=== PATIENT | female | born 1930 | race Caucasian/White ===

== ENCOUNTER 2016-09-23 11:58 | Inpatient (IN) | payer OTHER ==
[~2016-09-23] VITALS: Ht 154.9 cm; Wt 39.0 kg
[~2016-09-23 11:58] MED LIST: ACET-1311 PO; ALBU1AER9 INH; CALC-335 PO; LEVO75TA5 PO; MAGNSUS5 PO; NITR0.4S UT; POLY335019 PO; POTA20TA13 PO; RSTOPS OP; SENN8.6T15 PO; SERT25TA PO
[2016-09-23] MEDS ORDERED: GUAI1TAB55 PO (12:45)
[2016-09-23] MEDS ORDERED: MOMLX PO (12:45)
[2016-09-23] MEDS ORDERED: ONDA4TAB46 PO (12:45)
[2016-09-23] MEDS ORDERED: IMD/2 PO (12:45)
[2016-09-23] MEDS ORDERED: OXGN (12:45)
[2016-09-23] MEDS ORDERED: CLC100 PO (12:45)
[2016-09-23] MEDS ORDERED: SERT50TA PO (12:45)
[2016-09-23] MEDS ORDERED: CYCL0.052 OP (12:45)
--- NOTE | 2016-09-23 12:53 | EMERGENCY ROOM VISIT NOTE ---
History Report prepared by Lalaibbobby: Otoniel Villegas Under the Supervision of: Dr. Ruth Garcia M.D. First contact with patient: 12:41 Chief Complaint: COUGH Stated Complaint: SHORTNESS OF BREATH Nursing Triage Summary: Pt was brought in via ambulance ALS from [facility]. Pt has had a productive cough for the last 3-4 days. Pt is on 2lpm of home O2 only at night. When EMS arrived the pt O2 sat was in the mid 80's. Pt was placed on 2lpm and given a dueoneb en route. EMS reported rhonchi bilaterally. Pt is afebrille and has no other complaints. History of Present Illness The patient is an 85 year old female who presents to the Emergency Room via ALS from [facility] with complaints of persistent cough for the past few days. The patient complains of phlegm and a productive cough. She notes that every once in awhile her forehead feels warm, but then it goes away. Upon arrival at the ED, the patient is afebrile. The patient wears oxygen at night. Upon EMS arrival, the patient's oxygen saturation was in the mid 80's. The patient was placed on 2 liters and given a Duoneb treatment en route to the ED. Source of History: patient, nursing staff Onset: past few days Position: other (global) Timing: other (persistent) Associated Symptoms: + fevers (subjective) Note: Other associated symptoms: productive cough, phlegm Review of Systems See HPI for pertinent positives & negatives. A total of 10 systems reviewed and were otherwise negative. Past Medical & Surgical Medical Problems: (1) Anxiety State Nos (2) C7 cervical fracture (3) Chronic obstructive lung disease (4) Chronic respiratory failure (5) Diverticulosis Colon (W/O Ment Of Hemorrhage) (6) Frequent falls (7) FX UPPER END TIBIA-CLOSE (8) H/o lacunar infarct (9) History of possible drop attacks (10) History of systemic lupus erythematosus (SLE) (11) History of vertigo (12) Hypertension Nos (13) Hypothyroidism Nos (14) Lumbar spinal stenosis (15) Macular degeneration (16) Osteoarthritis (17) Osteoporosis Nos (18) Psoriasis (19) Pulmonary hypertension (20) Vertigo Surgical Problems: (1) History of dental surgery (2) S/P cataract surgery Family History Diabetes mellitus Gallbladder disease Heart disease Social History Smoking Status: Former Smoker Alcohol Use: none Drug Use: none Marital Status: single Housing Status: lives alone Occupation Status: retired Current/Historical Medications Scheduled Calcium Citrate-Vitamin D (Citracal Petites/Vitamin), 1 TAB PO DAILY Cyclosporine (Ophth) (Restasis), 1 DROP OP BID Docusate Sodium (Docusate Sodium), 100 MG PO BID Levothyroxine Sodium (Levothyroxine Sodium), 75 MCG PO DAILY Loperamide Hcl (Imodium), 4 MG PO UD Multiple Vitamins W/ Minerals (Ocuvite), 1 TABLET PO DAILY Nitroglycerin (Nitrostat), 0.4 MG UT PRN Oxygen (Oxygen), 2 LITERS NA PRN Polyethylene Glycol 3350 (Miralax), 1 TBS PO DAILY Potassium Chloride Microencaps (Potassium Chloride Er), 20 MEQ PO DAILY Sertraline (Zoloft), 50 MG PO DAILY Scheduled PRN Acetaminophen (Tylenol), 650 MG PO Q6 PRN for Pain Guaifenesin Ext Rel (Mucinex Ext Rel), 600 MG PO BID PRN for CONGESTION Magnesium Hydroxide (Milk of Magnesia), 30 ML PO DAILY PRN for Constipation Ondansetron Hcl (Zofran), 4 MG PO Q6 PRN for Nausea Sennosides-Docusate Sodium (Sennalax-S), 1 TAB PO DAILY PRN for Constipation Allergies Coded Allergies: Macrolides and Ketolides (Unverified Allergy, Mild, "mycins" = rash, ) Physical Exam Vital Signs Date Time Temp Pulse Resp B/P Pulse Ox O2 Delivery O2 Flow Rate FiO2 09/23/16 14:04 116/70 92 09/23/16 12:16 93 Nasal Cannula 3.0 09/23/16 12:09 89 Room Air 09/23/16 12:09 36.8 100 22 120/70 88 Room Air Physical Exam Vital signs reviewed. General: Chronically ill-appearing female, cachectic and frail, in no significant distress. HEENT: No scleral icterus, PERRLA, neck supple. Atraumatic. Cardiovascular: Regular rate and rhythm, no extra sounds. Pulmonary: Nasal canula oxygen in place. Coarse breath sounds bilaterally in all lung velázquez. Abdomen: Soft, nontender, nondistended, positive bowel sounds. Musculoskeletal: Atraumatic, no peripheral edema. Neurologic: Patient awake alert and oriented x 3, full strength in all 4 extremities. Cranial nerves 2 through 12 grossly intact. Skin: Warm, dry, no rash Medical Decision & Procedures ER Provider Diagnostic Interpretation: X-ray results as stated below per interpretation by me and the radiologist: CHEST ONE VIEW PORTABLE CLINICAL HISTORY: cough, SOB, COPD dyspnea COMPARISON STUDY: 02/18/2016 FINDINGS: Consolidative infiltrative process of the central right lung with probable right hilar extension. Baseline emphysematous change and chronic fibrotic change throughout both hemithoraces. Several scattered calcified granulomas stable. IMPRESSION: Interval development of a relatively large right perihilar consolidative infiltrative process. This should be closely monitored to exclude complete resolution and exclude any possible underlying mass . Electronically signed by: Arron Ty M.D. 09/23/2016 1:19 PM Dictated Date/Time: 09/23/2016 1:18 PM Laboratory Results Test 09/23/16 00:00 09/23/16 13:05 09/23/16 13:14 Influenza Type A (RT-PCR) Neg for Influ A (NEG) Influenza Type B (RT-PCR) Neg for Influ B (NEG) Immature Granulocyte % (Auto) 0.7 % White Blood Count 18.39 K/uL (4.8-10.8) Red Blood Count 3.39 M/uL (4.2-5.4) Hemoglobin 10.3 g/dL (12.0-16.0) Hematocrit 30.7 % (37-47) Mean Corpuscular Volume 90.6 fL (80-100) Mean Corpuscular Hemoglobin 30.4 pg (25-34) Mean Corpuscular Hemoglobin Concent 33.6 g/dl (32-36) Platelet Count 550 K/uL (130-400) Mean Platelet Volume 8.4 fL (7.4-10.4) Neutrophils (%) (Auto) 83.5 % Lymphocytes (%) (Auto) 7.3 % Monocytes (%) (Auto) 8.3 % Eosinophils (%) (Auto) 0.1 % Basophils (%) (Auto) 0.1 % Neutrophils # (Auto) 15.38 K/uL (1.4-6.5) Lymphocytes # (Auto) 1.34 K/uL (1.2-3.4) Monocytes # (Auto) 1.53 K/uL (0.11-0.59) Eosinophils # (Auto) 0.01 K/uL (0-0.5) Basophils # (Auto) 0.01 K/uL (0-0.2) Immature Granulocyte # (Auto) 0.12 K/uL (0.00-0.02) Prothrombin Time 12.1 SECONDS (9.0-12.0) Prothromb Time International Ratio 1.1 (0.9-1.1) Magnesium Level 2.2 mg/dl (1.8-2.4) Total Bilirubin 0.2 mg/dl (0.2-1) Direct Bilirubin < 0.1 mg/dl (0-0.2) Aspartate Amino Transf (AST/SGOT) 42 U/L (15-37) Alanine Aminotransferase (ALT/SGPT) 28 U/L (12-78) Alkaline Phosphatase 126 U/L (45-117) Total Creatine Kinase 17 U/L (26-192) Creatine Kinase MB 0.8 ng/ml (0.5-3.6) Creatine Kinase MB Ratio 4.7 (0-3.0) Total Protein 8.0 gm/dl (6.4-8.2) Albumin 1.7 gm/dl (3.4-5.0) Bedside Troponin I 0.020 ng/ml (0-0.045) Laboratory results per my review. Medications Administered Medications (Trade) Dose Ordered Sig/Veronica Route Start Time Stop Time Status Last Admin Dose Admin Levofloxacin 750 mg 750 mg NOW STAT IV 09/23/16 14:05 09/23/16 14:07 DC 09/23/16 15:42 750 MG Sodium Chloride (Nss 1000ml) 1,000 ml @ 100 mls/hr Q10H IV 09/23/16 15:11 09/26/16 04:23 100 MLS/HR Acetaminophen (Tylenol Tab) 650 mg Q4H PRN PO 09/23/16 15:15 10/23/16 15:14 09/23/16 22:24 650 MG ECG Indication: other Rate (beats per minute): 100 Rhythm: normal sinus Findings: PAC, no acute ischemic change, other (QTc 441) ED Course 1245: Past medical records reviewed. The patient was evaluated in room B9. A complete history and physical examination was performed. 1405: Ordered Levofloxacin 750 mg IV. 1415: Ordered Ioversol 100 ml IV/ Interaction checking. 1428: At this time, I discussed the patient's case with Dr. Tunde Ventura and she agreed to accept the patient for further evaluation. Medical Decision Differential diagnosis: Etiologies such as infections, reactive airway disease, pneumonia, pneumothorax , COPD, CHF, cardiac ischemia, pulmonary embolism, musculoskeletal, gastrointestinal, as well as others were entertained. This pt was evaluated and appeared to be in no distress. IV access was obtained and lab work was drawn. Pt was hydrated with NSS. CXR reveals a large R infiltrate. Lab work reveals an elevated WBC. Blood cultures and lactate were ordered. Influenza swab is negative. A CT chest was ordered to evaluate for underlying mass. Pt was given IV levaquin in the ED. Pt was d/w the hospitalist service for further management. Pt and niece are aware of the plan and agree. Consults Time Called: 142 Consulting Physician: Dr. Griffiths - Margo Ventura Returned Call: [phone] At this time, I discussed the patient's case with Dr. Griffiths and she agreed to accept the patient for further evaluation. Impression Primary Impression: Pneumonia Scribe Attestation The scribe's documentation has been prepared under my direction and personally reviewed by me in its entirety. I confirm that the note above accurately reflects all work, treatment, procedures, and medical decision making performed by me. Departure Information Dispostion Being Evaluated By Hospitalist Referrals Les Norton M.D. (PCP) Problem Qualifiers Primary Impression: Pneumonia Pneumonia type: due to unspecified organism Laterality: right Lung location : unspecified part of lung Qualified Codes: J18.9 - Pneumonia, unspecified organism
[2016-09-23] MEDS ORDERED: MULT-188 PO (13:10)
--- NOTE | 2016-09-23 13:21 | DIAGNOSTIC IMAGING REPORT ---
CHEST ONE VIEW PORTABLE CLINICAL HISTORY: cough, SOB, COPD dyspnea COMPARISON STUDY: 02/18/2016 FINDINGS: Consolidative infiltrative process of the central right lung with probable right hilar extension. Baseline emphysematous change and chronic fibrotic change throughout both hemithoraces. Several scattered calcified granulomas stable. IMPRESSION: Interval development of a relatively large right perihilar consolidative infiltrative process. This should be closely monitored to exclude complete resolution and exclude any possible underlying mass . Electronically signed by: Arron Ty M.D. 09/23/2016 1:19 PM Dictated Date/Time: 09/23/2016 1:18 PM
[2016-09-23 13:22] LABS: HEMATOCRIT 30.7 % (37-47); MEAN CELL VOLUME 90.6 fL (80-100); MEAN CORPUSCULAR HEMOGLOBIN 30.4 pg (25-34); MEAN CORPUSCULAR HGB CONC 33.6 g/dl (32-36); MEAN PLATELET VOLUME 8.4 fL (7.4-10.4); PLATELET COUNT 550 K/uL (130-400); RED BLOOD COUNT 3.39 M/uL (4.2-5.4); WHITE BLOOD COUNT 18.39 K/uL (4.8-10.8)
[2016-09-23 13:45] LABS: ALT/SGPT 28 U/L (12-78); AST/SGOT 42 U/L (15-37); BLOOD UREA NITROGEN 24 mg/dl (7-18); BUN/CREATININE RATIO 47.4 (10-20); CALCIUM 8.2 mg/dl (8.5-10.1); CARBON DIOXIDE 27 mmol/L (21-32); CHLORIDE 105 mmol/L (98-107); GLUCOSE 122 mg/dl (70-99); MAGNESIUM 2.2 mg/dl (1.8-2.4); POTASSIUM 3.8 mmol/L (3.5-5.1); SODIUM 141 mmol/L (136-145)
[2016-09-23 13:46] LABS: BASO % 0.1 %; BASO ABS # 0.01 K/uL (0-0.2); COMPLETE YES; EOS % 0.1 %; IG% 0.7 %; LYMPH % 7.3 %; LYMPH ABS # 1.34 K/uL (1.2-3.4); MONO % 8.3 %; NEUT % 83.5 %
[2016-09-23 13:50] LABS: ALKALINE PHOSPHATASE 126 U/L (45-117); CKMB/CK RATIO 4.7 (0-3.0)
[2016-09-23] MEDS ORDERED: LEVAQUIN 750MG / 150ML D5W IV STA (14:05)
[2016-09-23] MEDS ORDERED: OPTIRAY 320 IV PRN (14:15)
--- NOTE | 2016-09-23 15:13 | DIAGNOSTIC IMAGING REPORT ---
CT OF THE CHEST WITH IV CONTRAST CLINICAL HISTORY: Shortness of breath. Evaluate for pneumonia versus mass. COMPARISON STUDY: Chest CT January 04, 2016 and chest radiograph September 23, 2016. TECHNIQUE: Following IV administration of 93 mL of Optiray-320, helical axial images of the chest were obtained. Images were viewed in the axial, sagittal and coronal planes. IV contrast was administered without complication. CT DOSE: 171.21 mGycm FINDINGS: The size of the heart is normal. There is no pericardial effusion. Central airways are patent with exception of occlusion of the bronchus to the superior segment. There is dense consolidation within the superior segment and posterior basilar segment of the right lower lobe. There is also consolidation within the posterior segment of the right upper lobe. Multiple hypodense peripherally enhancing foci within the consolidation are noted. The findings suggest extensive necrotizing pneumonia. There is no central obstructing lesion. Scattered additional airspace opacities are noted within the lungs. There is no pneumothorax. There is trace right pleural fluid. Right middle lobe opacity has nearly completely resolved since exam of January 04, 2016. There is residual suspected scarring. Several wedge deformities of the thoracic spine are chronic. Visualized portions of the upper abdomen are unremarkable. An enlarged subcarinal lymph node measures 1.5 cm in short axis diameter. This may be reactive. IMPRESSION: 1. Extensive right lung consolidation, predominantly within the superior segment of the right lower lobe with patchy additional airspace opacities within lungs. The findings suggest extensive right lung necrotizing pneumonia. No central obstructing lesion. A neoplastic etiology is considered much less likely although a follow-up CT in one month is recommended. 2. Mildly enlarged subcarinal lymph node. This is likely reactive but should be assessed on subsequent CT. Electronically signed by: Noe Ramsay M.D. 09/23/2016 3:11 PM Dictated Date/Time: 09/23/2016 2:58 PM
[2016-09-23] MEDS ORDERED: ACETAMINOPHEN 325 MG TAB PO PRN (15:15)
[2016-09-23] MEDS ORDERED: NITROGLYCERIN 0.4 MG SL PER TAB CHARGE SL PRN (15:15)
[2016-09-23] MEDS ORDERED: ONDANSETRON INJ 2 MG/ML 2 ML VIAL IV PRN (15:15)
[2016-09-23] MEDS ORDERED: DOCUSATE SODIUM/SENNA 50/8.6MG TAB PO PRN (15:30)
[2016-09-23] MEDS ORDERED: MAGNESIUM HYDROXIDE SUSP 30 ML UDC PO PRN (15:30)
[2016-09-23 15:39] VITALS: O2SAT 92; Ht 154.9 cm; Wt 39.0 kg
[2016-09-23] MEDS: SODIUM CHLORIDE 0.9% 1000ML 1,000 ML IV SCH (15:42)
--- NOTE | 2016-09-23 16:42 | History and Physical ---
History & Physical Date & Time of Service: Sep 23, 2016 at 15:32 Chief Complaint: Shortness Of Breath Primary Care Physician: Les Norton M.D. History of Present Illness Source: patient This is an 85 y/o female with PMHx of Hypothyroidism, HTN and other problems as outlined below who presents to the ED from [facility] c/o worsening cough x 4 weeks. Pt reports that she has had a cough for the past 4 weeks. Initially the cough was dry however it has been productive of thick, yellow sputum for the past 10 days or so. Sxs are assoc with subj fevers, fatigue, SO and loss of appetite. Pt is typically on 2L O2 HS however she has been requiring 3L continuous O2 at [facility]. Today, pt was unable to maintain O2 saturations on 3L therefore she was sent to the ED. She was not on abx at the [place] [facility]. Pt denies chills, diaphoresis, chest pain, palpitations, wheezing, abd pain, N/V , bowel or bladder issues, LE edema, calf pain, lightheadedness/dizziness. In the ED, pt was tachy and hypoxic to 88% on room air. She is afebrile with leukocytosis >18k. HgB 10.3. CKMB 4.7. CXR + large R perihilar consolidation. EKG no acute ischemic changes. Pt received Levaquin in the ED. Pt is currently saturating well on 3L O2. She will be admitted for further evaluation and treatment. Past Medical/Surgical History Medical Problems: (1) Anxiety State Nos Status: Chronic (2) C7 cervical fracture Status: Resolved (3) Chronic obstructive lung disease Status: Chronic (4) Chronic respiratory failure Status: Chronic (5) Diverticulosis Colon (W/O Ment Of Hemorrhage) Status: Chronic (6) FX UPPER END TIBIA-CLOSE Status: Resolved (7) H/o lacunar infarct Permanent Comment: MRI 05/03/2015- old lacunar infarct within the left cerebellar hemisphere Status: Chronic (8) History of possible drop attacks Status: Chronic (9) History of systemic lupus erythematosus (SLE) Status: Chronic (10) History of vertigo Status: Chronic (11) Hypertension Nos Status: Chronic (12) Hypothyroidism Nos Status: Chronic (13) Lumbar spinal stenosis Status: Chronic (14) Macular degeneration Status: Chronic (15) Osteoarthritis Status: Chronic (16) Osteoporosis Nos Status: Chronic (17) Psoriasis Status: Chronic (18) Pulmonary hypertension Status: Chronic Surgical Problems: (1) History of dental surgery Status: Resolved (2) S/P cataract surgery Status: Resolved Family History Diabetes mellitus Gallbladder disease Heart disease Social History Smoking Status: Former Smoker (40 pack year history; quit 30 years ago ) Alcohol Use: none Drug Use: none Marital Status: single [facility] status[facility] [place] [facility] Occupational Status: retired Multi-Drug Resistant Organisms History of MDRO: No Allergies Coded Allergies: Macrolides and Ketolides (Unverified Allergy, Mild, "mycins" = rash, ) Home Medications Scheduled Calcium Citrate-Vitamin D (Citracal Petites/Vitamin), 1 TAB PO DAILY Cyclosporine (Ophth) (Restasis), 1 DROP OP BID Docusate Sodium (Docusate Sodium), 100 MG PO BID Levothyroxine Sodium (Levothyroxine Sodium), 75 MCG PO DAILY Loperamide Hcl (Imodium), 4 MG PO UD Multiple Vitamins W/ Minerals (Ocuvite), 1 TABLET PO DAILY Nitroglycerin (Nitrostat), 0.4 MG UT PRN Oxygen (Oxygen), 2 LITERS NA PRN Polyethylene Glycol 3350 (Miralax), 1 TBS PO DAILY Potassium Chloride Microencaps (Potassium Chloride Er), 20 MEQ PO DAILY Sertraline (Zoloft), 50 MG PO DAILY Scheduled PRN Acetaminophen (Tylenol), 650 MG PO Q6 PRN for Pain Guaifenesin Ext Rel (Mucinex Ext Rel), 600 MG PO BID PRN for CONGESTION Magnesium Hydroxide (Milk of Magnesia), 30 ML PO DAILY PRN for Constipation Ondansetron Hcl (Zofran), 4 MG PO Q6 PRN for Nausea Sennosides-Docusate Sodium (Sennalax-S), 1 TAB PO DAILY PRN for Constipation Review of Systems Constitutional: + fatigue, + fever (subj), No chills, No sweats, No weakness Eyes: No worsening of vision ENT: + hearing loss Respiratory: + cough, + shortness of breath, + sputum, No wheezing Cardiovascular: No chest pain, No claudication, No edema Abdomen: No constipation, No diarrhea, No nausea, No pain, No vomiting Musculoskeletal: No calf pain, No swelling Genitourinary - Female: No dysuria Neurologic: No weakness Psychiatric: No depression symptoms Endocrine: + fatigue Hematologic / Lymphatic: No abnormal bleeding/bruising Integumentary: No new/changing skin lesions Physical Exam Vital Signs Date Time Temp Pulse Resp B/P Pulse Ox O2 Delivery O2 Flow Rate FiO2 09/23/16 14:04 116/70 92 09/23/16 12:16 93 Nasal Cannula 3.0 09/23/16 12:09 89 Room Air 09/23/16 12:09 36.8 100 22 120/70 88 Room Air General Appearance: WD/WN, no apparent distress, + cachetic, + pertinent finding (Pt is sitting up in bed with niece at bedside ) Head: normocephalic, atraumatic Eyes: normal inspection ENT: hearing grossly normal Neck: supple Respiratory/Chest: chest non-tender, no respiratory distress, no accessory muscle use, + pertinent finding (course breath sounds; no wheezing noted) Cardiovascular: regular rate, rhythm, no edema, no murmur Abdomen/GI: normal bowel sounds, non tender, soft Back: normal inspection Extremities/Musculoskelatal: normal inspection, no calf tenderness, no pedal edema Neurologic/Psych: alert, normal mood/affect, oriented x 3 Skin: normal color, warm/dry Diagnostics Laboratory Results Results Past 24 Hours Test 09/23/16 13:05 09/23/16 13:14 09/23/16 15:17 Range/Units White Blood Count 18.39 4.8-10.8 K/uL Red Blood Count 3.39 4.2-5.4 M/uL Hemoglobin 10.3 12.0-16.0 g/dL Hematocrit 30.7 37-47 % Mean Corpuscular Volume 90.6 80-100 fL Mean Corpuscular Hemoglobin 30.4 25-34 pg Mean Corpuscular Hemoglobin Concent 33.6 32-36 g/dl Platelet Count 550 130-400 K/uL Mean Platelet Volume 8.4 7.4-10.4 fL Neutrophils (%) (Auto) 83.5 % Lymphocytes (%) (Auto) 7.3 % Monocytes (%) (Auto) 8.3 % Eosinophils (%) (Auto) 0.1 % Basophils (%) (Auto) 0.1 % Neutrophils # (Auto) 15.38 1.4-6.5 K/uL Lymphocytes # (Auto) 1.34 1.2-3.4 K/uL Monocytes # (Auto) 1.53 0.11-0.59 K/uL Eosinophils # (Auto) 0.01 0-0.5 K/uL Basophils # (Auto) 0.01 0-0.2 K/uL RDW Standard Deviation 47.2 36.4-46.3 fL RDW Coefficient of Variation 14.2 11.5-14.5 % Immature Granulocyte % (Auto) 0.7 % Immature Granulocyte # (Auto) 0.12 0.00-0.02 K/uL Sodium Level 141 136-145 mmol/L Potassium Level 3.8 3.5-5.1 mmol/L Chloride Level 105 98-107 mmol/L Carbon Dioxide Level 27 21-32 mmol/L Anion Gap 9.0 3-11 mmol/L Blood Urea Nitrogen 24 7-18 mg/dl Creatinine 0.50 0.60-1.20 mg/dl Est Creatinine Clear Calc Drug Dose 48.8 ml/min Estimated GFR () 100.9 Estimated GFR (Non- 87.0 BUN/Creatinine Ratio 47.4 10-20 Random Glucose 122 70-99 mg/dl Calcium Level 8.2 8.5-10.1 mg/dl Magnesium Level 2.2 1.8-2.4 mg/dl Total Bilirubin 0.2 0.2-1 mg/dl Direct Bilirubin < 0.1 0-0.2 mg/dl Aspartate Amino Transf (AST/SGOT) 42 15-37 U/L Alanine Aminotransferase (ALT/SGPT) 28 12-78 U/L Alkaline Phosphatase 126 45-117 U/L Total Creatine Kinase 17 26-192 U/L Creatine Kinase MB 0.8 0.5-3.6 ng/ml Creatine Kinase MB Ratio 4.7 0-3.0 Total Protein 8.0 6.4-8.2 gm/dl Albumin 1.7 3.4-5.0 gm/dl Bedside Troponin I 0.020 0-0.045 ng/ml Microbiology Results 09/23/16 Blood Culture, Hany Batch Pending 09/23/16 Blood Culture, Hany Batch Pending Diagnostic Radiology CT CHEST IMPRESSION: 1. Extensive right lung consolidation, predominantly within the superior segment of the right lower lobe with patchy additional airspace opacities within lungs. The findings suggest extensive right lung necrotizing pneumonia. No central obstructing lesion. A neoplastic etiology is considered much less likely although a follow-up CT in one month is recommended. 2. Mildly enlarged subcarinal lymph node. This is likely reactive but should be assessed on subsequent CT. CXR IMPRESSION: Interval development of a relatively large right perihilar consolidative infiltrative process. This should be closely monitored to exclude complete resolution and exclude any possible underlying mass . EKG EKG: NSR at 100 bpm with no acute ischemic changes noted Impression Assessment and Plan HYPOXIC RESPIRATORY FAILURE SECONDARY TO LARGE NECROTIZING PNEUMONIA pt presented with prod cough assoc with subj fevers and SOB -admit to telemetry -meets SIRS criteria with tachycardia, leukocytosis>18k and known source of infection -pt is hypoxic on arrival; now saturating well on 3L -CXR + large RUL pneumonia; CT chest confirms pneumonia and deems a neoplasm less likely -blood and sputum cx-pending -check MRSA -start IVF and abx (Levaquin and Zosyn) -duonebs -cont supplemental O2 -consult pulmonology, Dr. Paulino-appreciate input -monitor CHRONIC ANEMIA -HgB 10.3 (baseline 9-11) -monitor with daily CBC -pt currently denies active bleed THROMBOCYTOSIS -plt 550; likely reactive to acute infection -monitor daily HYPOTHYROIDISM -cont levothyroxine DEPRESSION -cont Zoloft DVT PROPHYLAXIS -subq heparin CODE STATUS -DNR per discussion with patient DISPO Pt seen in collaboration with Dr. Griffiths. Please see her addendum for further details. Thanks! Level of Care Telemetry Resuscitation Status DO NOT RESUSCITATE VTE Prophylaxis VTE Risk Assessment Done? Y/N: Yes Risk Level: Moderate Given or contraindicated: Unfractionated heparin SQ Social Service Consult Lives in [facility] Note ADDENDUM: I have seen and examined the patient and agree with the assessment and plan as stated after discussion with provider above. Pt with increased oxygen requirement and extensive right sided-necrotizing pneumonia. She appears well clinically, however, she does meet sepsis criteria. IVF are going , broad spectrum abx were started and we have consulted pulmonology for assistance. Will start vanc if MRSA swab is positive. Flu PCR pending. Weight stable since one year ago based on outpatient records. On exam she is mildly tachycardic with a HR in the 90s and she is 92% on 3L via nasal canula. She is not working hard to breathe. She is frail and elderly. Lung exam reveals crackles throughout all lung velázquez. She demonstrates a mild, nonproductive cough. Otherwise heart sounds are normal and exam is otherwise unremarkable. Cont breathing treatments, appreciate pulmonology input in am. Kyrs Griffiths DO (Hospitalist)
[2016-09-23 16:50] LABS: INR 1.1 (0.9-1.1); PROTHROMBIN TIME (PATIENT) 12.1 SECONDS (9.0-12.0)
[2016-09-23 17:00] VITALS: BP 128/74; PULSE 93; TEMP 36.8; O2SAT 87
[2016-09-23] MEDS ORDERED: PIPERACILL/TAZOBAC CONSULT ACTIVE PRN (19:15)
[2016-09-23] MEDS: ALBUT/IPRATROP 3MG/0.5MG NEB 3 ML VIAL INH SCH (19:19)
[2016-09-23 19:20] VITALS: PULSE 78; O2SAT 95
[2016-09-23 19:44] VITALS: O2SAT 95
[2016-09-23 19:45] VITALS: BP 110/68; PULSE 97; TEMP 36.9; O2SAT 92
[2016-09-23] MEDS ORDERED: PIPERACILL/TAZOBAC IV 3.375 GM in DEXTROSE 5% 100ML IV ONE (20:00)
[2016-09-23] MEDS: HEPARIN SOD 5000 UNIT/0.5 ML CARP SC SCH (20:25)
[2016-09-23] MEDS: DOCUSATE SODIUM 100 MG CAP PO SCH (20:30)
[2016-09-23] MEDS ORDERED: SODIUM CHLORIDE 0.9% 500ML 500 ML IV ONE (20:45)
[2016-09-23] MEDS ORDERED: NON-FORMULARY MEDICATION (Cyclosporine (Ophth) (Restasis) 1 DROP) OP SCH (21:00)
[2016-09-23 22:56] LABS: INFLUENZA A PCR Neg for Influ A (NEG); INFLUENZA B PCR Neg for Influ B (NEG)
[2016-09-24] VITALS (13 sets, daily range): BP systolic 103–119; BP diastolic 60–67; PULSE 64–117; TEMP 36.7–37.2; O2SAT 93–98
[2016-09-24] MEDS ORDERED: PIPERACILL/TAZOBAC IV 3.375 GM in DEXTROSE 5% 100ML 100 ML IV SCH ×2
--- NOTE | 2016-09-24 00:05 | Progress Note ---
Progress Note Post Crystalloid Evaluation Date: Sep 23, 2016 Time: 18:00 Subjective Sepsis 2/2 pneumonia with hypoxia on oxygen. +coughing. +SOB. See H&P for full details. Physical Exam Vital Signs: Vital Signs Date Time Temp Pulse Resp B/P Pulse Ox O2 Delivery O2 Flow Rate FiO2 09/23/16 19:45 36.9 97 20 110/68 92 Nasal Cannula 09/23/16 19:44 2.0 Lungs: no respiratory distress, no accessory muscle use, + crackles, + rhonchi (rhonchi/crackles throughout all lung velázquez) Heart: regular rate, rhythm, no edema, no gallop, no JVD, no murmur, normal peripheral pulses Peripheral Pulse: Normal Skin: Unremarkable Assessment & Plan Pt wtih HR in 90s and minimal IVF given in ER. On 80cc/hr and will bolus an additional 500cc now. Cont broad spectrum abx including Levaquin and Zosyn ( discussed with pulm). Awaiting MRSA screen to start Vanc if needed. Krys Griffiths, Hospitalist
[2016-09-24] MEDS: PIPERACILL/TAZOBAC IV 3.375 GM in DEXTROSE 5% 100ML IV SCH ×3 (01:40→17:17)
[2016-09-24] MEDS: SODIUM CHLORIDE 0.9% 1000ML 1,000 ML IV SCH ×4 (01:41→22:22)
[2016-09-24] MEDS: LEVOTHYROXINE 75 MCG TAB PO SCH (05:30)
[2016-09-24] MEDS: ALBUT/IPRATROP 3MG/0.5MG NEB 3 ML VIAL INH SCH ×4 (07:26→20:07)
[2016-09-24 07:55] LABS: HEMATOCRIT 28.7 % (37-47); MEAN CELL VOLUME 93.5 fL (80-100); MEAN CORPUSCULAR HEMOGLOBIN 30.6 pg (25-34); MEAN CORPUSCULAR HGB CONC 32.8 g/dl (32-36); MEAN PLATELET VOLUME 8.6 fL (7.4-10.4); PLATELET COUNT 515 K/uL (130-400); RED BLOOD COUNT 3.07 M/uL (4.2-5.4); WHITE BLOOD COUNT 17.48 K/uL (4.8-10.8)
[2016-09-24 08:28] LABS: BUN/CREATININE RATIO 39.3 (10-20); CALCIUM 7.9 mg/dl (8.5-10.1); CREATININE 0.44 mg/dl (0.60-1.20); POTASSIUM 3.7 mmol/L (3.5-5.1)
[2016-09-24] MEDS: CEROVITE ADV FORMULA TAB PO SCH (08:48)
[2016-09-24] MEDS: SERTRALINE HCL 50 MG TAB PO SCH (08:48)
[2016-09-24] MEDS: CALCIUM CITRATE 950 MG TAB PO SCH (08:49)
[2016-09-24] MEDS: POTASSIUM CHLORIDE 20 MEQ TABCR PO SCH (08:49)
[2016-09-24] MEDS: DOCUSATE SODIUM 100 MG CAP PO SCH ×2 (08:49→20:07)
[2016-09-24] MEDS: POLYETHYLENE (MIRALAX) 17 GM PACK PO SCH (08:50)
[2016-09-24] MEDS: HEPARIN SOD 5000 UNIT/0.5 ML CARP SC SCH ×2 (08:52→20:47)
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
[2016-09-24] MEDS: LEVOFLOXACIN / D5W 500 MG in PREMIXED IN D5W 100 ML IV SCH (13:54)
--- NOTE | 2016-09-24 15:58 | Progress Note ---
Medicine Progress Note Date & Time of Visit: Sep 24, 2016 at 15:37. Subjective Pt was seen and examined Lying in bed with no acute distress with niece at bedside Pt said that she feels a little bit better this morning Denies any chest pain, palpitation, dizziness and palpitation Complaint of SOB on exertion Objective Last 8 Hrs Date Time Temp Pulse Resp B/P Pulse Ox O2 Delivery O2 Flow Rate FiO2 09/24/16 15:35 79 16 93 Nasal Cannula 2.0 09/24/16 12:00 Nasal Cannula 2.0 09/24/16 11:30 64 20 108/67 09/24/16 11:27 84 20 109/63 09/24/16 11:15 36.8 95 22 108/60 95 Nasal Cannula 2.0 09/24/16 11:06 89 16 95 Nasal Cannula 2.0 09/24/16 10:48 Nasal Cannula 2.0 09/24/16 08:00 Nasal Cannula 2.0 09/24/16 07:45 36.7 104 26 119/64 93 Nasal Cannula 2.0 Physical Exam: General- No acute distress, very pleasant Head- atraumatic Eyes- PERRL, EOMI ENT- oropharynx clear Neck- supple, no JVD Lungs- clear to auscultation and percussion Heart- regular rhythm Abdomen- normal bowel sounds, soft Extremities- no calf tenderness, b/l ankle tenderness Neuro- alert, awake PERRL, EOMI Skin- warm & dry Laboratory Results: Last 24 Hours Test 09/23/16 16:09 09/24/16 07:32 Lactic Acid Level 1.8 mmol/L White Blood Count 17.48 K/uL Red Blood Count 3.07 M/uL Hemoglobin 9.4 g/dL Hematocrit 28.7 % Mean Corpuscular Volume 93.5 fL Mean Corpuscular Hemoglobin 30.6 pg Mean Corpuscular Hemoglobin Concent 32.8 g/dl RDW Standard Deviation 48.5 fL RDW Coefficient of Variation 14.2 % Platelet Count 515 K/uL Mean Platelet Volume 8.6 fL Sodium Level 143 mmol/L Potassium Level 3.7 mmol/L Chloride Level 105 mmol/L Carbon Dioxide Level 28 mmol/L Anion Gap 10.0 mmol/L Blood Urea Nitrogen 17 mg/dl Creatinine 0.44 mg/dl Est Creatinine Clear Calc Drug Dose 53.0 ml/min Estimated GFR () 105.2 Estimated GFR (Non- 90.8 BUN/Creatinine Ratio 39.3 Random Glucose 105 mg/dl Calcium Level 7.9 mg/dl Date/Time Source Procedure Growth Status 09/23/16 18:30 Nasal MRSA DNA Surveillance Screen - Final Specimen Negative for MRSA by DNA Probe Complete 09/23/16 20:00 Sputum Expectorated Sputum Gram Stain - Final Resulted 09/23/16 20:00 Sputum Expectorated Sputum Sputum Culture - Preliminary LIGHT NORMAL LELA Present, Final Rep... Resulted Assessment & Plan HYPOXIC RESPIRATORY FAILURE Mostly due to Pneumonia -CXR showed large RUL pneumonia CT showed Extensive right lung consolidation, predominantly within the superior segment of the right lower lobe with patchy additional airspace opacities within lungs Continue Levaquin and Zosyn Blood cx and sputum cx pending Continue respiratory treatment with Duoneb cont supplement O2 Pulmonology on board Dr. Paulino CHRONIC ANEMIA Hgb 9.4 (baseline 9-11) Monitor with daily CBC Stable THROMBOCYTOSIS -Plt 515 -monitor daily HYPOTHYROIDISM -cont levothyroxine DEPRESSION -cont Zoloft DVT PROPHYLAXIS -subq heparin CODE STATUS DNR Consultants: Pulmonary Current Inpatient Medications: Current Inpatient Medications Medications (Trade) Dose Ordered Sig/Veronica Route Start Time Stop Time Status Last Admin Dose Admin Ioversol (Optiray 320) 100 ml UD PRN IV 09/23/16 14:15 09/27/16 14:14 Heparin Sodium (Porcine) 5000 unit 5,000 unit Q12 SC 09/23/16 21:00 10/23/16 20:59 09/24/16 08:52 5,000 UNIT Sodium Chloride (Nss 1000ml) 1,000 ml @ 100 mls/hr Q10H IV 09/23/16 15:11 09/24/16 09:38 100 MLS/HR Acetaminophen (Tylenol Tab) 650 mg Q4H PRN PO 09/23/16 15:15 10/23/16 15:14 09/23/16 22:24 650 MG Ondansetron HCl (Zofran Inj) 4 mg Q6H PRN IV 09/23/16 15:15 10/23/16 15:14 Nitroglycerin 0.4 mg 0.4 mg UD PRN SL 09/23/16 15:15 10/23/16 15:14 Levofloxacin/Prmx (Levaquin / D5W/ Premixed D5W) 100 ml @ 100 mls/hr Q24H IV 09/24/16 14:00 09/29/16 23:59 09/24/16 13:54 100 MLS/HR Docusate Sodium (coLACE CAP) 100 mg BID PO 09/23/16 21:00 10/23/16 20:59 09/24/16 08:49 100 MG Guaifenesin (Mucinex Contr Rel Tab) 600 mg BID PRN PO 09/23/16 15:30 10/23/16 15:29 Levothyroxine Sodium (Synthroid Tab) 75 mcg DAILYBB PO 09/24/16 06:00 10/24/16 05:59 09/24/16 05:30 75 MCG Magnesium Hydroxide (Milk Of Magnesia Susp) 30 ml DAILY PRN PO 09/23/16 15:30 10/23/16 15:29 Multivitamins/ Minerals (Multivitamin W/ Minerals Tab) 1 tab DAILY PO 09/24/16 09:00 10/24/16 08:59 09/24/16 08:48 1 TAB Potassium Chloride (Klor-Con Tab) 20 meq DAILY PO 09/24/16 09:00 10/24/16 08:59 09/24/16 08:49 20 MEQ Senna/Docusate Sodium (Senokot S Tab) 1 tab DAILY PRN PO 09/23/16 15:30 10/23/16 15:29 Sertraline HCl (Zoloft Tab) 50 mg DAILY PO 09/24/16 09:00 10/24/16 08:59 09/24/16 08:48 50 MG Calcium Citrate (Citracal Tab) 950 mg DAILY PO 09/24/16 09:00 10/24/16 08:59 09/24/16 08:49 950 MG Polyethylene (Miralax Powder Packet) 17 gm DAILY PO 09/24/16 09:00 10/24/16 08:59 09/24/16 08:50 17 GM Albuterol/ Ipratropium (Duoneb) 3 ml QIDR INH 09/23/16 16:00 10/23/16 15:59 09/24/16 11:06 3 ML Miscellaneous Information 1 ea 1 ea QS N/A 09/24/16 00:00 10/24/16 00:00 Piperacillin Sod/ Tazobactam Sod/ Dextrose (Zosyn Iv/D5 100ml) 115 ml @ 28.75 mls/ hr Q8H IV 09/24/16 02:00 10/01/16 01:59 09/24/16 09:37 28.75 MLS/HR Piperacillin Sod/ Tazobactam Sod (Consult) 1 ea UD PRN N/A 09/23/16 19:15 10/23/16 19:14
[2016-09-25] VITALS (10 sets, daily range): BP systolic 100–125; BP diastolic 61–75; PULSE 63–99; TEMP 36.4–37.1; O2SAT 94–97
[2016-09-25] MEDS: PIPERACILL/TAZOBAC IV 3.375 GM in DEXTROSE 5% 100ML IV SCH ×3 (02:11→18:30)
[2016-09-25] MEDS: LEVOTHYROXINE 75 MCG TAB PO SCH (04:58)
[2016-09-25] MEDS: ALBUT/IPRATROP 3MG/0.5MG NEB 3 ML VIAL INH SCH ×4 (07:38→20:37)
[2016-09-25] MEDS: GUAIFENESIN 600 MG TABCR PO PRN (08:13)
[2016-09-25] MEDS: SERTRALINE HCL 50 MG TAB PO SCH (08:13)
[2016-09-25] MEDS: DOCUSATE SODIUM 100 MG CAP PO SCH ×2 (08:13→19:13)
[2016-09-25] MEDS: CALCIUM CITRATE 950 MG TAB PO SCH (08:14)
[2016-09-25] MEDS: POLYETHYLENE (MIRALAX) 17 GM PACK PO SCH (08:14)
[2016-09-25] MEDS: CEROVITE ADV FORMULA TAB PO SCH (08:14)
[2016-09-25] MEDS: POTASSIUM CHLORIDE 20 MEQ TABCR PO SCH (08:14)
[2016-09-25] MEDS: HEPARIN SOD 5000 UNIT/0.5 ML CARP SC SCH ×2 (08:15→19:12)
[2016-09-25] MEDS: SODIUM CHLORIDE 0.9% 1000ML 1,000 ML IV SCH ×2 (08:16→19:13)
--- NOTE | 2016-09-25 11:13 | PULMONARY PROGRESS NOTE ---
DATE: 09/25/2016 TIME: 10:50 a.m. SUBJECTIVE: The patient feels slightly better. She is still short of breath, but thinks it might be a little better. She is a little stronger. She is currently sitting up in a chair. Her appetite remains poor. She states that yesterday she coughed up quite a bit of thick mucus. She describes it as jones. Today, she has not brought up any phlegm. OBJECTIVE: GENERAL: The patient appeared comfortable. VITAL SIGNS: She is afebrile with a temperature of 36.5. Her maximal temperature in the past 24 hours is 37.2 degrees. HEENT: Pupils were reactive to light. Mouth exam is unremarkable. NECK: Palpation of the neck reveals no lymph nodes. The patient again appears relatively cachectic. HEART: Heart rate is 96 per minute. Fairly frequent extrasystoles were heard. LUNGS: Lung velázquez revealed once again rales bilaterally, but greater on the right than the left. They are both anterior and posterior. Respiratory rate is 20 breaths per minute. Saturation 94% on 2 liters. Blood pressure 125/75. EXTREMITIES: Showed no cyanosis, clubbing or edema. LABORATORY DATA: It appears that the patient has not had any blood work today. IMPRESSIONS: 1. Pneumonia, right middle lobe and right lower lobe, likely secondary to aspiration. 2. Chronic obstructive pulmonary disease. 3. Dysphagia. 4. Leukocytosis. COMMENTS AND RECOMMENDATIONS: Would generally continue current care. She is still on the levofloxacin and Zosyn. She also remains on DuoNebs 4 times per day. I believe it will take quite a bit of time for this very significant x-ray finding to show dramatic improvement. I would wait for a couple days before repeating the chest x-ray.
[2016-09-25] MEDS: LEVOFLOXACIN / D5W 500 MG in PREMIXED IN D5W 100 ML IV SCH (14:22)
--- NOTE | 2016-09-25 19:28 | Progress Note ---
Medicine Progress Note Date & Time of Visit: Sep 25, 2016 at 19:22. Subjective Pt was seen and examined Sitting in chair comfortable with no distress Pt seems a little confused, she is asking for the hospital bills She wants to be discharge She said that her breathing improved she denies any chest pain, palpitation, dizziness Objective Last 8 Hrs Date Time Temp Pulse Resp B/P Pulse Ox O2 Delivery O2 Flow Rate FiO2 09/25/16 16:00 Room Air 09/25/16 15:28 88 16 95 Nasal Cannula 2.0 09/25/16 15:26 37.1 88 18 100/64 95 Nasal Cannula 2.0 09/25/16 13:41 Nasal Cannula 2.0 09/25/16 11:54 36.4 99 18 113/69 96 Nasal Cannula 2.0 09/25/16 11:29 97 16 95 Nasal Cannula 2.0 Physical Exam: General- No acute distress, very pleasant Head- atraumatic Eyes- PERRL, EOMI ENT- oropharynx clear Neck- supple, no JVD Lungs- clear to auscultation and percussion Heart- regular rhythm Abdomen- normal bowel sounds, soft Extremities- no calf tenderness, b/l ankle tenderness Neuro- alert, awake PERRL, EOMI Skin- warm & dry Assessment & Plan HYPOXIC RESPIRATORY FAILURE Mostly due to Pneumonia -CXR showed large RUL pneumonia CT showed Extensive right lung consolidation, predominantly within the superior segment of the right lower lobe with patchy additional airspace opacities within lungs Continue Levaquin and Zosyn Blood cx showed no growth sputum cx growth normal bhavik Continue respiratory treatment with Duoneb cont supplement O2 Pulmonology on board Dr. Paulino continue current therapy CHRONIC ANEMIA Hgb stable (baseline 9-11) Monitor with daily CBC THROMBOCYTOSIS -Plt stable -monitor daily HYPOTHYROIDISM -cont levothyroxine DEPRESSION -cont Zoloft DVT PROPHYLAXIS -subq heparin CODE STATUS DNR Consultants: Pulmonary Current Inpatient Medications: Current Inpatient Medications Medications (Trade) Dose Ordered Sig/Veronica Route Start Time Stop Time Status Last Admin Dose Admin Ioversol (Optiray 320) 100 ml UD PRN IV 09/23/16 14:15 09/27/16 14:14 Heparin Sodium (Porcine) 5000 unit 5,000 unit Q12 SC 09/23/16 21:00 10/23/16 20:59 09/25/16 19:12 5,000 UNIT Sodium Chloride (Nss 1000ml) 1,000 ml @ 100 mls/hr Q10H IV 09/23/16 15:11 09/25/16 19:13 100 MLS/HR Acetaminophen (Tylenol Tab) 650 mg Q4H PRN PO 09/23/16 15:15 10/23/16 15:14 09/23/16 22:24 650 MG Ondansetron HCl (Zofran Inj) 4 mg Q6H PRN IV 09/23/16 15:15 10/23/16 15:14 Nitroglycerin 0.4 mg 0.4 mg UD PRN SL 09/23/16 15:15 10/23/16 15:14 Levofloxacin/Prmx (Levaquin / D5W/ Premixed D5W) 100 ml @ 100 mls/hr Q24H IV 09/24/16 14:00 09/29/16 23:59 09/25/16 14:22 100 MLS/HR Docusate Sodium (coLACE CAP) 100 mg BID PO 09/23/16 21:00 10/23/16 20:59 09/25/16 19:13 100 MG Guaifenesin (Mucinex Contr Rel Tab) 600 mg BID PRN PO 09/23/16 15:30 10/23/16 15:29 09/25/16 08:13 600 MG Levothyroxine Sodium (Synthroid Tab) 75 mcg DAILYBB PO 09/24/16 06:00 10/24/16 05:59 09/25/16 04:58 75 MCG Magnesium Hydroxide (Milk Of Magnesia Susp) 30 ml DAILY PRN PO 09/23/16 15:30 10/23/16 15:29 Multivitamins/ Minerals (Multivitamin W/ Minerals Tab) 1 tab DAILY PO 09/24/16 09:00 10/24/16 08:59 09/25/16 08:14 1 TAB Potassium Chloride (Klor-Con Tab) 20 meq DAILY PO 09/24/16 09:00 10/24/16 08:59 09/25/16 08:14 20 MEQ Senna/Docusate Sodium (Senokot S Tab) 1 tab DAILY PRN PO 09/23/16 15:30 10/23/16 15:29 09/25/16 08:13 1 TAB Sertraline HCl (Zoloft Tab) 50 mg DAILY PO 09/24/16 09:00 10/24/16 08:59 09/25/16 08:13 50 MG Calcium Citrate (Citracal Tab) 950 mg DAILY PO 09/24/16 09:00 10/24/16 08:59 09/25/16 08:14 950 MG Polyethylene (Miralax Powder Packet) 17 gm DAILY PO 09/24/16 09:00 10/24/16 08:59 09/24/16 08:50 17 GM Albuterol/ Ipratropium (Duoneb) 3 ml QIDR INH 09/23/16 16:00 10/23/16 15:59 09/25/16 15:27 3 ML Miscellaneous Information 1 ea 1 ea QS N/A 09/24/16 00:00 10/24/16 00:00 Piperacillin Sod/ Tazobactam Sod/ Dextrose (Zosyn Iv/D5 100ml) 115 ml @ 28.75 mls/ hr Q8H IV 09/24/16 02:00 10/01/16 01:59 09/25/16 18:30 28.75 MLS/HR Piperacillin Sod/ Tazobactam Sod (Consult) 1 ea UD PRN N/A 09/23/16 19:15 10/23/16 19:14
[2016-09-26] VITALS (9 sets, daily range): BP systolic 113–152; BP diastolic 61–79; PULSE 84–106; TEMP 36.6–36.8; O2SAT 93–99
[2016-09-26] MEDS: PIPERACILL/TAZOBAC IV 3.375 GM in DEXTROSE 5% 100ML IV SCH ×3 (02:04→17:55)
[2016-09-26] MEDS: SODIUM CHLORIDE 0.9% 1000ML 1,000 ML IV SCH (04:23)
[2016-09-26] MEDS: LEVOTHYROXINE 75 MCG TAB PO SCH (05:45)
[2016-09-26 07:25] LABS: HEMATOCRIT 26.3 % (37-47); MEAN CELL VOLUME 90.4 fL (80-100); MEAN CORPUSCULAR HEMOGLOBIN 30.2 pg (25-34); MEAN CORPUSCULAR HGB CONC 33.5 g/dl (32-36); MEAN PLATELET VOLUME 8.3 fL (7.4-10.4); PLATELET COUNT 462 K/uL (130-400); RED BLOOD COUNT 2.91 M/uL (4.2-5.4); WHITE BLOOD COUNT 13.98 K/uL (4.8-10.8)
[2016-09-26] MEDS: ALBUT/IPRATROP 3MG/0.5MG NEB 3 ML VIAL INH SCH ×4 (07:29→20:00)
[2016-09-26 07:55] LABS: BUN/CREATININE RATIO 28.5 (10-20); CALCIUM 7.3 mg/dl (8.5-10.1); CREATININE 0.39 mg/dl (0.60-1.20); POTASSIUM 3.3 mmol/L (3.5-5.1)
[2016-09-26] MEDS: CALCIUM CITRATE 950 MG TAB PO SCH (07:59)
[2016-09-26] MEDS: POLYETHYLENE (MIRALAX) 17 GM PACK PO SCH (07:59)
[2016-09-26] MEDS: GUAIFENESIN 600 MG TABCR PO PRN (07:59)
[2016-09-26] MEDS: SERTRALINE HCL 50 MG TAB PO SCH (08:00)
[2016-09-26] MEDS: POTASSIUM CHLORIDE 20 MEQ TABCR PO SCH (08:00)
[2016-09-26] MEDS: DOCUSATE SODIUM 100 MG CAP PO SCH ×2 (08:01→21:04)
[2016-09-26] MEDS: CEROVITE ADV FORMULA TAB PO SCH (08:01)
[2016-09-26] MEDS ORDERED: POTASSIUM CHLORIDE 20 MEQ TABCR PO ONE (08:30)
[2016-09-26] MEDS: HEPARIN SOD 5000 UNIT/0.5 ML CARP SC SCH ×2 (09:12→21:08)
--- NOTE | 2016-09-26 11:43 | Progress Note ---
Medicine Progress Note Date & Time of Visit: Sep 26, 2016 at 11:36. Subjective Pt was seen and examined Sitting in chair comfortable with no distress She said that she feels much better today denies any chest pain, palpitation, dizziness Objective Last 8 Hrs Date Time Temp Pulse Resp B/P Pulse Ox O2 Delivery O2 Flow Rate FiO2 09/26/16 11:12 86 16 96 Nasal Cannula 2.0 09/26/16 08:08 36.6 92 19 145/79 99 Nasal Cannula 2.0 09/26/16 08:00 Nasal Cannula 2.0 09/26/16 07:28 84 16 98 Nasal Cannula 2.0 09/26/16 04:45 36.8 106 18 152/65 96 Nasal Cannula 2.0 09/26/16 04:00 Nasal Cannula 2.0 Physical Exam: General- No acute distress, very pleasant Head- atraumatic Eyes- PERRL, EOMI ENT- oropharynx clear Neck- supple, no JVD Lungs- clear to auscultation and percussion Heart- regular rhythm Abdomen- normal bowel sounds, soft Extremities- no calf tenderness, b/l ankle tenderness Neuro- alert, awake PERRL, EOMI Skin- warm & dry Laboratory Results: Last 24 Hours Test 09/26/16 07:02 White Blood Count 13.98 K/uL Red Blood Count 2.91 M/uL Hemoglobin 8.8 g/dL Hematocrit 26.3 % Mean Corpuscular Volume 90.4 fL Mean Corpuscular Hemoglobin 30.2 pg Mean Corpuscular Hemoglobin Concent 33.5 g/dl RDW Standard Deviation 47.9 fL RDW Coefficient of Variation 14.4 % Platelet Count 462 K/uL Mean Platelet Volume 8.3 fL Sodium Level 143 mmol/L Potassium Level 3.3 mmol/L Chloride Level 109 mmol/L Carbon Dioxide Level 23 mmol/L Anion Gap 11.0 mmol/L Blood Urea Nitrogen 11 mg/dl Creatinine 0.39 mg/dl Est Creatinine Clear Calc Drug Dose 62.6 ml/min Estimated GFR () 109.5 Estimated GFR (Non- 94.4 BUN/Creatinine Ratio 28.5 Random Glucose 87 mg/dl Calcium Level 7.3 mg/dl Assessment & Plan HYPOXIC RESPIRATORY FAILURE Mostly due to Pneumonia -CXR showed large RUL pneumonia CT showed Extensive right lung consolidation, predominantly within the superior segment of the right lower lobe with patchy additional airspace opacities within lungs Continue Levaquin and Zosyn day#4 Blood cx showed no growth sputum cx growth normal bhavik Continue respiratory treatment with Duoneb cont supplement O2 Pulmonology on board Dr. Paulino continue current therapy will repeat cxr Clinically stable CHRONIC ANEMIA Hgb 8.8 today (baseline 9-11) Monitor with daily CBC THROMBOCYTOSIS -Plt 462 -monitor daily HYPOTHYROIDISM -cont levothyroxine DEPRESSION -cont Zoloft DVT PROPHYLAXIS -subq heparin CODE STATUS DNR DISPOSITION will transfer to medical Possible discharge tomorrow Consultants: Pulmonary Current Inpatient Medications: Current Inpatient Medications Medications (Trade) Dose Ordered Sig/Veronica Route Start Time Stop Time Status Last Admin Dose Admin Ioversol (Optiray 320) 100 ml UD PRN IV 09/23/16 14:15 09/27/16 14:14 Heparin Sodium (Porcine) (Heparin Sq 5000 Unit/0.5ml) 5,000 unit Q12 SC 09/23/16 21:00 10/23/16 20:59 09/26/16 09:12 5,000 UNIT Acetaminophen (Tylenol Tab) 650 mg Q4H PRN PO 09/23/16 15:15 10/23/16 15:14 09/23/16 22:24 650 MG Ondansetron HCl (Zofran Inj) 4 mg Q6H PRN IV 09/23/16 15:15 10/23/16 15:14 Nitroglycerin 0.4 mg 0.4 mg UD PRN SL 09/23/16 15:15 10/23/16 15:14 Levofloxacin/Prmx (Levaquin / D5W/ Premixed D5W) 100 ml @ 100 mls/hr Q24H IV 09/24/16 14:00 09/29/16 23:59 09/25/16 14:22 100 MLS/HR Docusate Sodium (coLACE CAP) 100 mg BID PO 09/23/16 21:00 10/23/16 20:59 09/26/16 08:01 100 MG Guaifenesin (Mucinex Contr Rel Tab) 600 mg BID PRN PO 09/23/16 15:30 10/23/16 15:29 09/26/16 07:59 600 MG Levothyroxine Sodium (Synthroid Tab) 75 mcg DAILYBB PO 09/24/16 06:00 10/24/16 05:59 09/26/16 05:45 75 MCG Magnesium Hydroxide (Milk Of Magnesia Susp) 30 ml DAILY PRN PO 09/23/16 15:30 10/23/16 15:29 Multivitamins/ Minerals (Multivitamin W/ Minerals Tab) 1 tab DAILY PO 09/24/16 09:00 10/24/16 08:59 09/26/16 08:01 1 TAB Potassium Chloride (Klor-Con Tab) 20 meq DAILY PO 09/24/16 09:00 10/24/16 08:59 09/26/16 08:00 20 MEQ Senna/Docusate Sodium (Senokot S Tab) 1 tab DAILY PRN PO 09/23/16 15:30 10/23/16 15:29 09/25/16 08:13 1 TAB Sertraline HCl (Zoloft Tab) 50 mg DAILY PO 09/24/16 09:00 10/24/16 08:59 09/26/16 08:00 50 MG Calcium Citrate (Citracal Tab) 950 mg DAILY PO 09/24/16 09:00 10/24/16 08:59 09/26/16 07:59 950 MG Polyethylene (Miralax Powder Packet) 17 gm DAILY PO 09/24/16 09:00 10/24/16 08:59 09/26/16 07:59 17 GM Albuterol/ Ipratropium (Duoneb) 3 ml QIDR INH 09/23/16 16:00 10/23/16 15:59 09/26/16 11:12 3 ML Miscellaneous Information 1 ea 1 ea QS N/A 09/24/16 00:00 10/24/16 00:00 Piperacillin Sod/ Tazobactam Sod/ Dextrose (Zosyn Iv/D5 100ml) 115 ml @ 28.75 mls/ hr Q8H IV 09/24/16 02:00 10/01/16 01:59 09/26/16 10:16 28.75 MLS/HR Piperacillin Sod/ Tazobactam Sod (Consult) 1 ea UD PRN N/A 09/23/16 19:15 10/23/16 19:14
--- NOTE | 2016-09-26 12:53 | PROGRESS NOTE ---
DATE: 09/26/2016 DATE: 09/26/2016. PROBLEM LIST: Includes: 1. Right middle lobe and right lower lobe pneumonia, most likely secondary to aspiration. 2. Chronic obstructive pulmonary disease. 3. Dysphasia. 4. Leukocytosis. SUBJECTIVE: The patient reports that she is feeling better. Her breathing is improved. She still has some cough and mucus production, but it is improving overall. She is less short of breath. She continues to receive oxygen at 2 liters per minute and continues on nebulizer treatment. She feels that these are helpful for her. She denies any chest pain. Denies any palpitations. Denies any GI problems. Denies any difficulty voiding. OBJECTIVE: GENERAL: The patient is a thin framed small white female in no acute distress, sitting at bedside eating lunch. She is alert and oriented x3. Mood is good. Affect is good. VITAL SIGNS: Temp 36.6, pulse 87, respiration 18, blood pressure is 117/65, pulse ox 95% on 2 liters. NECK: Thin, no mass, no adenopathy, no bruit, good range of motion. No JVD, no thyromegaly. CHEST: Chest diminished, a few scattered rales at bases. No wheeze or rhonchi noted. CARDIOVASCULAR: Regular rate and rhythm. No murmurs, gallops or rubs appreciated. ABDOMEN: Thin. Bowel sounds are present. Abdomen soft, nontender. No guarding, rigidity or organomegaly. EXTREMITIES: No erythema, no edema, no cyanosis or clubbing. NEUROLOGIC: Cranial nerves II through XII grossly intact. No focal deficit noted. LABORATORY DATA: Shows white count down to 13,000, H\T\H 8.8/26.3, platelet count 462,000. Sputum cultures showing moderate normal bhavik. IMPRESSION: This is an 85-year-old female who had a right-sided pneumonia. At this time she continues to show improvement. Would like for her to continue current antibiotic regimen of Zosyn and levofloxacin. I would recommend to continue nebulizer treatment. We will put an order in for chest x-ray in the morning. At this time if she continues to show improvement I could potentially see her discharged tomorrow. Would recommend to do a 2-step prior to discharge. We will continue to follow through hospitalization.
[2016-09-26] MEDS: LEVOFLOXACIN / D5W 500 MG in PREMIXED IN D5W 100 ML IV SCH (14:02)
[2016-09-27] VITALS (7 sets, daily range): BP systolic 105–124; BP diastolic 65–76; PULSE 80–99; TEMP 36.4–36.6; O2SAT 94–97
[2016-09-27] MEDS: PIPERACILL/TAZOBAC IV 3.375 GM in DEXTROSE 5% 100ML IV SCH ×3 (02:29→18:11)
[2016-09-27] MEDS: LEVOTHYROXINE 75 MCG TAB PO SCH (06:22)
[2016-09-27] MEDS: ALBUT/IPRATROP 3MG/0.5MG NEB 3 ML VIAL INH SCH ×4 (06:50→21:35)
[2016-09-27 08:13] LABS: HEMATOCRIT 28.9 % (37-47); MEAN CELL VOLUME 92.9 fL (80-100); MEAN CORPUSCULAR HEMOGLOBIN 30.5 pg (25-34); MEAN CORPUSCULAR HGB CONC 32.9 g/dl (32-36); MEAN PLATELET VOLUME 8.7 fL (7.4-10.4); PLATELET COUNT 508 K/uL (130-400); RED BLOOD COUNT 3.11 M/uL (4.2-5.4); WHITE BLOOD COUNT 13.45 K/uL (4.8-10.8)
[2016-09-27 08:38] LABS: BUN/CREATININE RATIO 19.8 (10-20); CALCIUM 7.9 mg/dl (8.5-10.1); CREATININE 0.44 mg/dl (0.60-1.20); POTASSIUM 3.7 mmol/L (3.5-5.1)
--- NOTE | 2016-09-27 08:38 | DIAGNOSTIC IMAGING REPORT ---
CHEST 2 VIEWS ROUTINE CLINICAL HISTORY: Right-sided pneumonia. COMPARISON STUDY: Chest radiograph and chest CT September 23, 2016. FINDINGS: Dense right mid lung consolidation persists. There is no pneumothorax. Mild left basilar opacity is present. There is also mild right basilar opacity. Cardiac size is normal. There is a small right pleural effusion. IMPRESSION: 1. Persistent dense right midlung consolidation. This suggests pneumonia. Radiographic follow up to ensure complete resolution is recommended. 2. Small right pleural effusion. 3. Scattered additional airspace opacities which favor a multifocal infectious process. Electronically signed by: Noe Ramsay M.D. 09/27/2016 8:37 AM Dictated Date/Time: 09/27/2016 8:35 AM
[2016-09-27] MEDS: POLYETHYLENE (MIRALAX) 17 GM PACK PO SCH (08:40)
[2016-09-27] MEDS: CALCIUM CITRATE 950 MG TAB PO SCH (08:40)
[2016-09-27] MEDS: GUAIFENESIN 600 MG TABCR PO PRN (08:40)
[2016-09-27] MEDS: POTASSIUM CHLORIDE 20 MEQ TABCR PO SCH (08:41)
[2016-09-27] MEDS: CEROVITE ADV FORMULA TAB PO SCH (08:41)
[2016-09-27] MEDS: SERTRALINE HCL 50 MG TAB PO SCH (08:41)
[2016-09-27] MEDS: DOCUSATE SODIUM 100 MG CAP PO SCH ×2 (08:41→20:13)
[2016-09-27] MEDS: HEPARIN SOD 5000 UNIT/0.5 ML CARP SC SCH ×2 (08:43→20:22)
[2016-09-27] MEDS: LEVOFLOXACIN / D5W 500 MG in PREMIXED IN D5W 100 ML IV SCH (14:00)
--- NOTE | 2016-09-27 15:40 | PROGRESS NOTE ---
DATE: 09/27/2016 PROBLEM LIST: Includes 1. Right middle lobe and right lower lobe pneumonia, most likely secondary to aspiration. 2. Chronic obstructive pulmonary disease. 3. Dysphasia. 4. Leukocytosis. SUBJECTIVE: The patient reports that she continues to feel better. She states that her breathing is improving. She states that she still is coughing, but is not as bad. She does get a little bit of mucus up. She is unsure of the color. She has not noticed herself wheezing. She is using her oxygen and feels that it is helpful. She does have oxygen at home. She has no chest pain or palpitations. She states her appetite is doing well. She has no nausea or vomiting, no indigestion or heartburn. No difficulty with her bowels. She denies any difficulty, otherwise she would like to be discharged today. OBJECTIVE: GENERAL: The patient is an 85-year-old female sitting in bed in no acute distress, no respiratory distress. She is alert and oriented. Mood is good. Affect is good. VITAL SIGNS: Temp 36.6, pulse 98, respirations 24, blood pressure 109/66, pulse ox 97% on 3 liters. HEENT: Normocephalic. Pupils equal, round and reactive to light and accommodation. Extraocular movements are intact. [place] moist gingival and buccal mucosa. NECK: Supple. No mass. No adenopathy. No bruit. CHEST: Actually, pretty clear. No significant wheezing. The patient does have some coarse breath sounds at the right. CARDIOVASCULAR: Regular rate and rhythm. No murmurs, gallops or rubs appreciated. ABDOMEN: Bowel sounds are present. Abdomen soft, nontender. No guarding, rigidity or organomegaly. EXTREMITIES: No erythema or edema. LABORATORY DATA: Shows a white count of 13,000, H\T\H 9.5 and 28.9, platelet count is 508,000. Chest x-ray shows a persistent consolidation in the right midlung area. IMPRESSION: The patient is an 85-year-old female with right-sided pneumonia. The patient clinically is improving; however, imaging is not showing significant change at this point. The patient is requesting to be discharged today. I feel that from a pulmonary standpoint she is safe for this. I did discuss with hospitalist, Dr. Gonzalez and we are in agreement, the patient can be transitioned back to her living environment. She does have oxygen present. She does have modalities such as nebulizer present. At this time she will need to continue course of antibiotics and prednisone. I would also like for her to follow up with pulmonary as an outpatient. She will need repeat chest x-ray in approximately 2 weeks to reevaluate this area.
--- NOTE | 2016-09-27 17:58 | Progress Note ---
Medicine Progress Note Date & Time of Visit: Sep 27, 2016 at 17:51. Subjective Pt was seen and examined sitting in chair comfortable with no distress Pt said that she is ready to go home today she said that her breathing improved she denies any chest pain, palpitation, dizziness Objective Last 8 Hrs Date Time Temp Pulse Resp B/P Pulse Ox O2 Delivery O2 Flow Rate FiO2 09/27/16 16:10 84 18 96 Nasal Cannula 2.0 09/27/16 15:40 36.4 96 20 105/65 94 Nasal Cannula 2.0 Physical Exam: General- No acute distress, very pleasant Head- atraumatic Eyes- PERRL, EOMI ENT- oropharynx clear Neck- supple, no JVD Lungs- Poor air entry Heart- regular rhythm Abdomen- normal bowel sounds, soft Extremities- no calf tenderness, b/l ankle tenderness Neuro- alert, awake PERRL, EOMI Skin- warm & dry Laboratory Results: Last 24 Hours Test 09/27/16 07:40 White Blood Count 13.45 K/uL Red Blood Count 3.11 M/uL Hemoglobin 9.5 g/dL Hematocrit 28.9 % Mean Corpuscular Volume 92.9 fL Mean Corpuscular Hemoglobin 30.5 pg Mean Corpuscular Hemoglobin Concent 32.9 g/dl RDW Standard Deviation 49.2 fL RDW Coefficient of Variation 14.6 % Platelet Count 508 K/uL Mean Platelet Volume 8.7 fL Sodium Level 142 mmol/L Potassium Level 3.7 mmol/L Chloride Level 106 mmol/L Carbon Dioxide Level 27 mmol/L Anion Gap 9.0 mmol/L Blood Urea Nitrogen 9 mg/dl Creatinine 0.44 mg/dl Est Creatinine Clear Calc Drug Dose 55.5 ml/min Estimated GFR () 105.2 Estimated GFR (Non- 90.8 BUN/Creatinine Ratio 19.8 Random Glucose 89 mg/dl Calcium Level 7.9 mg/dl Assessment & Plan HYPOXIC RESPIRATORY FAILURE Mostly due to Pneumonia -CXR showed large RUL pneumonia CT showed Extensive right lung consolidation, predominantly within the superior segment of the right lower lobe with patchy additional airspace opacities within lungs Continue Levaquin and Zosyn day#5 Blood cx showed no growth sputum cx growth normal bhavik Continue respiratory treatment with Duoneb cont supplement O2 Pulmonology on board Dr. Paulino on home oxygen at night saturation dropped to 86% on RA repeat cxr this morning showed Persistent dense right midlung consolidation will get a 2 step and discharge in the morning case discussed with [facility] pulmonary recommend to follow up at the pulmonary clinic in 2 weeks Clinically stable CHRONIC ANEMIA Hgb 9.5 today (baseline 9-11) Monitor with daily CBC THROMBOCYTOSIS -Plt 508 -monitor daily HYPOTHYROIDISM -cont levothyroxine DEPRESSION -cont Zoloft DVT PROPHYLAXIS -subq heparin CODE STATUS DNR DISPOSITION will transfer to medical Possible discharge tomorrow Consultants: Pulmonary Current Inpatient Medications: Current Inpatient Medications Medications (Trade) Dose Ordered Sig/Veronica Route Start Time Stop Time Status Last Admin Dose Admin Heparin Sodium (Porcine) (Heparin Sq 5000 Unit/0.5ml) 5,000 unit Q12 SC 09/23/16 21:00 10/23/16 20:59 09/27/16 08:43 5,000 UNIT Acetaminophen (Tylenol Tab) 650 mg Q4H PRN PO 09/23/16 15:15 10/23/16 15:14 09/23/16 22:24 650 MG Ondansetron HCl (Zofran Inj) 4 mg Q6H PRN IV 09/23/16 15:15 10/23/16 15:14 Nitroglycerin 0.4 mg 0.4 mg UD PRN SL 09/23/16 15:15 10/23/16 15:14 Levofloxacin/Prmx (Levaquin / D5W/ Premixed D5W) 100 ml @ 100 mls/hr Q24H IV 09/24/16 14:00 09/29/16 23:59 09/26/16 14:02 100 MLS/HR Docusate Sodium (coLACE CAP) 100 mg BID PO 09/23/16 21:00 10/23/16 20:59 09/27/16 08:41 100 MG Guaifenesin (Mucinex Contr Rel Tab) 600 mg BID PRN PO 09/23/16 15:30 10/23/16 15:29 09/27/16 08:40 600 MG Levothyroxine Sodium (Synthroid Tab) 75 mcg DAILYBB PO 09/24/16 06:00 10/24/16 05:59 09/27/16 06:22 75 MCG Magnesium Hydroxide (Milk Of Magnesia Susp) 30 ml DAILY PRN PO 09/23/16 15:30 10/23/16 15:29 Multivitamins/ Minerals (Multivitamin W/ Minerals Tab) 1 tab DAILY PO 09/24/16 09:00 10/24/16 08:59 09/27/16 08:41 1 TAB Potassium Chloride (Klor-Con Tab) 20 meq DAILY PO 09/24/16 09:00 10/24/16 08:59 09/27/16 08:41 20 MEQ Senna/Docusate Sodium (Senokot S Tab) 1 tab DAILY PRN PO 09/23/16 15:30 10/23/16 15:29 09/25/16 08:13 1 TAB Sertraline HCl (Zoloft Tab) 50 mg DAILY PO 09/24/16 09:00 10/24/16 08:59 09/27/16 08:41 50 MG Calcium Citrate (Citracal Tab) 950 mg DAILY PO 09/24/16 09:00 10/24/16 08:59 09/27/16 08:40 950 MG Polyethylene (Miralax Powder Packet) 17 gm DAILY PO 09/24/16 09:00 10/24/16 08:59 09/27/16 08:40 17 GM Albuterol/ Ipratropium (Duoneb) 3 ml QIDR INH 09/23/16 16:00 10/23/16 15:59 09/27/16 16:10 3 ML Miscellaneous Information 1 ea 1 ea QS N/A 09/24/16 00:00 10/24/16 00:00 Piperacillin Sod/ Tazobactam Sod/ Dextrose (Zosyn Iv/D5 100ml) 115 ml @ 28.75 mls/ hr Q8H IV 09/24/16 02:00 10/01/16 01:59 09/27/16 10:30 28.75 MLS/HR Piperacillin Sod/ Tazobactam Sod (Consult) 1 ea UD PRN N/A 09/23/16 19:15 10/23/16 19:14
[2016-09-28 00:21] VITALS: BP 122/72; PULSE 102; TEMP 36.6; O2SAT 97
[2016-09-28] MEDS: PIPERACILL/TAZOBAC IV 3.375 GM in DEXTROSE 5% 100ML IV SCH ×2 (02:40→09:56)
[2016-09-28] MEDS: LEVOTHYROXINE 75 MCG TAB PO SCH (06:06)
[2016-09-28 07:22] LABS: HEMATOCRIT 26.7 % (37-47); MEAN CELL VOLUME 93.7 fL (80-100); MEAN CORPUSCULAR HEMOGLOBIN 30.2 pg (25-34); MEAN CORPUSCULAR HGB CONC 32.2 g/dl (32-36); MEAN PLATELET VOLUME 8.5 fL (7.4-10.4); PLATELET COUNT 509 K/uL (130-400); RED BLOOD COUNT 2.85 M/uL (4.2-5.4); WHITE BLOOD COUNT 13.37 K/uL (4.8-10.8)
[2016-09-28 07:23] VITALS: BP 123/74; PULSE 81; TEMP 36.5; O2SAT 98
[2016-09-28 07:25] VITALS: BP 106/69; PULSE 77; TEMP 36.5; O2SAT 92
[2016-09-28 07:27] VITALS: PULSE 80; O2SAT 95
[2016-09-28] MEDS: ALBUT/IPRATROP 3MG/0.5MG NEB 3 ML VIAL INH SCH (07:27)
[2016-09-28 08:00] VITALS: O2SAT 92
[2016-09-28] MEDS: HEPARIN SOD 5000 UNIT/0.5 ML CARP SC SCH (09:00)
[2016-09-28] MEDS: POLYETHYLENE (MIRALAX) 17 GM PACK PO SCH (09:46)
[2016-09-28] MEDS: DOCUSATE SODIUM 100 MG CAP PO SCH (09:46)
[2016-09-28] MEDS: GUAIFENESIN 600 MG TABCR PO PRN (09:46)
[2016-09-28] MEDS: CALCIUM CITRATE 950 MG TAB PO SCH (09:47)
[2016-09-28] MEDS: CEROVITE ADV FORMULA TAB PO SCH (09:47)
[2016-09-28] MEDS: SERTRALINE HCL 50 MG TAB PO SCH (09:47)
[2016-09-28] MEDS: POTASSIUM CHLORIDE 20 MEQ TABCR PO SCH (09:48)
--- NOTE | 2016-09-28 09:49 | Progress Note ---
Medicine Progress Note Date & Time of Visit: Sep 28, 2016 at 09:29. Subjective Pt was seen and examined sitting in chair very comfortable with no distress she said that she feels much better she said that her breathing is improved denies any chest pain, palpitation Dizziness Objective Last 8 Hrs Date Time Temp Pulse Resp B/P Pulse Ox O2 Delivery O2 Flow Rate FiO2 09/28/16 08:00 92 Nasal Cannula 2.0 09/28/16 07:27 80 14 95 Nasal Cannula 2.0 09/28/16 07:25 36.5 77 18 106/69 92 Nasal Cannula 4.0 09/28/16 07:23 36.5 81 22 123/74 98 Nasal Cannula 2.0 Physical Exam: General- No acute distress, very pleasant Head- atraumatic Eyes- PERRL, EOMI ENT- oropharynx clear Neck- supple, no JVD Lungs- Poor air entry Heart- regular rhythm Abdomen- normal bowel sounds, soft Extremities- no calf tenderness, b/l ankle tenderness Neuro- alert, awake PERRL, EOMI Skin- warm & dry Laboratory Results: Last 24 Hours Test 09/28/16 06:49 White Blood Count 13.37 K/uL Red Blood Count 2.85 M/uL Hemoglobin 8.6 g/dL Hematocrit 26.7 % Mean Corpuscular Volume 93.7 fL Mean Corpuscular Hemoglobin 30.2 pg Mean Corpuscular Hemoglobin Concent 32.2 g/dl RDW Standard Deviation 49.9 fL RDW Coefficient of Variation 14.7 % Platelet Count 509 K/uL Mean Platelet Volume 8.5 fL Diagnostic Imaging: CT OF THE CHEST WITH IV CONTRAST CLINICAL HISTORY: Shortness of breath. Evaluate for pneumonia versus mass. COMPARISON STUDY: Chest CT January 04, 2016 and chest radiograph September 23, 2016. TECHNIQUE: Following IV administration of 93 mL of Optiray-320, helical axial images of the chest were obtained. Images were viewed in the axial, sagittal and coronal planes. IV contrast was administered without complication. CT DOSE: 171.21 mGycm FINDINGS: The size of the heart is normal. There is no pericardial effusion. Central airways are patent with exception of occlusion of the bronchus to the superior segment. There is dense consolidation within the superior segment and posterior basilar segment of the right lower lobe. There is also consolidation within the posterior segment of the right upper lobe. Multiple hypodense peripherally enhancing foci within the consolidation are noted. The findings suggest extensive necrotizing pneumonia. There is no central obstructing lesion. Scattered additional airspace opacities are noted within the lungs. There is no pneumothorax. There is trace right pleural fluid. Right middle lobe opacity has nearly completely resolved since exam of January 04, 2016. There is residual suspected scarring. Several wedge deformities of the thoracic spine are chronic. Visualized portions of the upper abdomen are unremarkable. An enlarged subcarinal lymph node measures 1.5 cm in short axis diameter. This may be reactive. IMPRESSION: 1. Extensive right lung consolidation, predominantly within the superior segment of the right lower lobe with patchy additional airspace opacities within lungs. The findings suggest extensive right lung necrotizing pneumonia. No central obstructing lesion. A neoplastic etiology is considered much less likely although a follow-up CT in one month is recommended. 2. Mildly enlarged subcarinal lymph node. This is likely reactive but should be assessed on subsequent CT. Electronically signed by: Noe Ramsay M.D. 09/23/2016 3:11 PM Dictated Date/Time: 09/23/2016 2:58 PM Assessment & Plan HYPOXIC RESPIRATORY FAILURE Mostly due to Pneumonia -CXR showed large RUL pneumonia CT showed Extensive right lung consolidation, predominantly within the superior segment of the right lower lobe with patchy additional airspace opacities within lungs Continue Levaquin and Zosyn day#6 Blood cx showed no growth sputum cx growth normal bhavik Continue respiratory treatment with Duoneb cont supplement O2 Pulmonology on board Dr. Paulino on home oxygen at night saturation dropped to 86% on RA Pt desaturated on 2 step, will need continuous oxygen at 2L NC repeat cxr on 09/27 showed Persistent dense right midlung consolidation case discussed with Oc CALLAHAN pulmonary recommend to follow up at the pulmonary clinic in 2 weeks Clinically stable CHRONIC ANEMIA Hgb 8.6 today (baseline 9-11) Monitor with daily CBC THROMBOCYTOSIS -Plt 509 -monitor daily HYPOTHYROIDISM -cont levothyroxine DEPRESSION -cont Zoloft DVT PROPHYLAXIS -subq heparin CODE STATUS DNR DISPOSITION discharge today to [facility] Pt already has an appointment with dr. Norton on Friday Please Call [phone] to schedule an appointment with pulmonology in [address] Paulino or Oc Vasquez PA-C Consultants: Pulmonary PT/OT Current Inpatient Medications: Current Inpatient Medications Medications (Trade) Dose Ordered Sig/Veronica Route Start Time Stop Time Status Last Admin Dose Admin Heparin Sodium (Porcine) (Heparin Sq 5000 Unit/0.5ml) 5,000 unit Q12 SC 09/23/16 21:00 10/23/16 20:59 09/27/16 20:22 5,000 UNIT Acetaminophen (Tylenol Tab) 650 mg Q4H PRN PO 09/23/16 15:15 10/23/16 15:14 09/23/16 22:24 650 MG Ondansetron HCl (Zofran Inj) 4 mg Q6H PRN IV 09/23/16 15:15 10/23/16 15:14 Nitroglycerin 0.4 mg 0.4 mg UD PRN SL 09/23/16 15:15 10/23/16 15:14 Levofloxacin/Prmx (Levaquin / D5W/ Premixed D5W) 100 ml @ 100 mls/hr Q24H IV 09/24/16 14:00 09/29/16 23:59 09/26/16 14:02 100 MLS/HR Docusate Sodium (coLACE CAP) 100 mg BID PO 09/23/16 21:00 10/23/16 20:59 09/27/16 20:13 100 MG Guaifenesin (Mucinex Contr Rel Tab) 600 mg BID PRN PO 09/23/16 15:30 10/23/16 15:29 09/27/16 08:40 600 MG Levothyroxine Sodium (Synthroid Tab) 75 mcg DAILYBB PO 09/24/16 06:00 10/24/16 05:59 09/28/16 06:06 75 MCG Magnesium Hydroxide (Milk Of Magnesia Susp) 30 ml DAILY PRN PO 09/23/16 15:30 10/23/16 15:29 Multivitamins/ Minerals (Multivitamin W/ Minerals Tab) 1 tab DAILY PO 09/24/16 09:00 10/24/16 08:59 09/27/16 08:41 1 TAB Potassium Chloride (Klor-Con Tab) 20 meq DAILY PO 09/24/16 09:00 10/24/16 08:59 09/27/16 08:41 20 MEQ Senna/Docusate Sodium (Senokot S Tab) 1 tab DAILY PRN PO 09/23/16 15:30 10/23/16 15:29 09/25/16 08:13 1 TAB Sertraline HCl (Zoloft Tab) 50 mg DAILY PO 09/24/16 09:00 10/24/16 08:59 09/27/16 08:41 50 MG Calcium Citrate (Citracal Tab) 950 mg DAILY PO 09/24/16 09:00 10/24/16 08:59 09/27/16 08:40 950 MG Polyethylene (Miralax Powder Packet) 17 gm DAILY PO 09/24/16 09:00 10/24/16 08:59 09/27/16 08:40 17 GM Albuterol/ Ipratropium (Duoneb) 3 ml QIDR INH 09/23/16 16:00 10/23/16 15:59 09/28/16 07:27 3 ML Miscellaneous Information 1 ea 1 ea QS N/A 09/24/16 00:00 10/24/16 00:00 Piperacillin Sod/ Tazobactam Sod/ Dextrose (Zosyn Iv/D5 100ml) 115 ml @ 28.75 mls/ hr Q8H IV 09/24/16 02:00 10/01/16 01:59 09/28/16 02:40 28.75 MLS/HR Piperacillin Sod/ Tazobactam Sod (Consult) 1 ea UD PRN N/A 09/23/16 19:15 10/23/16 19:14 Prednisone (PredniSONE TAB) 20 mg DAILY PO 09/28/16 08:00 10/28/16 07:59
[2016-09-28] MEDS ORDERED: IPRASOL4 INH (11:25)
[2016-09-28] MEDS ORDERED: PRD20 PO (11:25)
[2016-09-28] MEDS ORDERED: LEVO1TAB34 PO ×2 (11:25→11:43)
--- NOTE | 2016-09-28 11:42 | Discharge Instructions ---
Discharge Instructions Admission Reason for Admission: Pneumonia Discharge Discharge Diagnosis / Problem: Right side Pneumonia, HYPOXIC RESPIRATORY FAILURE, Thrombocytosis Discharge Goals Goal(s): Decrease discomfort, Improve function, Improve disease control Activity Recommendations Activity Limitations: resume your previous activity (as tolerated) . Instructions / Follow-Up Instructions / Follow-Up Discharge to [facility] Follow up appointment with your Primary care provider Dr. Norton on FridaySep 30 at 10:10 am Please Call [phone] to schedule an appointment with pulmonology in [address] Paulino or Oc Vasquez PA-C Follow up with Continue PT/OT Fall precaution Continue oxygen with 2L NC Finish the course of Abx (levaquin) and steroid Current Hospital Diet Patient's current hospital diet: Regular Diet Discharge Diet Recommended Diet: Regular Diet Pending Studies Studies pending at discharge: no Medical Emergencies . Who to Call and When: Medical Emergencies: If at any time you feel your situation is an emergency, please call 911 immediately. . Non-Emergent Contact Non-Emergency issues call your: Primary Care Provider Call Non-Emergent contact if: you have a fever, you have any medication questions . . "Provider Documentation" section prepared by Jae Gonzalez. VTE Core Measure Inpt VTE Proph given/why not?: Unfractionated heparin SQ
[2016-09-28 12:24] VITALS: BP 106/69; PULSE 80; TEMP 36.5; O2SAT 92
--- NOTE | 2016-10-03 10:23 | Discharge Summary ---
Discharge Summary Date of Service Oct 03, 2016. Discharge Summary Admission Date: Sep 23, 2016 at 15:21 Discharge Date: Sep 28, 2016 Discharge Disposition: Personal care Principal Diagnosis: Right sided Pneumonia, Secondary Diagnoses/Problems: HYPOXIC RESPIRATORY FAILURE Thrombocytosis Chronic Anemia Hypothyroidism Depression Procedures: CT OF THE CHEST WITH IV CONTRAST CLINICAL HISTORY: Shortness of breath. Evaluate for pneumonia versus mass. COMPARISON STUDY: Chest CT January 04, 2016 and chest radiograph September 23, 2016. TECHNIQUE: Following IV administration of 93 mL of Optiray-320, helical axial images of the chest were obtained. Images were viewed in the axial, sagittal and coronal planes. IV contrast was administered without complication. CT DOSE: 171.21 mGycm FINDINGS: The size of the heart is normal. There is no pericardial effusion. Central airways are patent with exception of occlusion of the bronchus to the superior segment. There is dense consolidation within the superior segment and posterior basilar segment of the right lower lobe. There is also consolidation within the posterior segment of the right upper lobe. Multiple hypodense peripherally enhancing foci within the consolidation are noted. The findings suggest extensive necrotizing pneumonia. There is no central obstructing lesion. Scattered additional airspace opacities are noted within the lungs. There is no pneumothorax. There is trace right pleural fluid. Right middle lobe opacity has nearly completely resolved since exam of January 04, 2016. There is residual suspected scarring. Several wedge deformities of the thoracic spine are chronic. Visualized portions of the upper abdomen are unremarkable. An enlarged subcarinal lymph node measures 1.5 cm in short axis diameter. This may be reactive. IMPRESSION: 1. Extensive right lung consolidation, predominantly within the superior segment of the right lower lobe with patchy additional airspace opacities within lungs. The findings suggest extensive right lung necrotizing pneumonia. No central obstructing lesion. A neoplastic etiology is considered much less likely although a follow-up CT in one month is recommended. 2. Mildly enlarged subcarinal lymph node. This is likely reactive but should be assessed on subsequent CT. Electronically signed by: Noe Ramsay M.D. 09/23/2016 3:11 PM Dictated Date/Time: 09/23/2016 2:58 PM Consultations: Pulmonary PT/OT Medication Reconciliation New Medications: Levofloxacin (Levaquin) 500 Mg Tab 500 MG PO DAILY for 5 Days, #5 TAB Ipratropium-Albuterol (Duoneb) 3 Ml Nebu 3 ML INH QIDR PRN for SOB/Wheezing for 30 Days, #1 BOX Prednisone (Prednisone) 20 Mg Tab 20 MG PO DAILY for 5 Days, TAB Continued Medications: Acetaminophen (Tylenol) 325 Mg Tab 650 MG PO Q6 PRN for Pain, TAB MAX 3GM APAP/24HR Calcium Citrate-Vitamin D (Citracal Petites/Vitamin) 1 Tab Tab 1 TAB PO DAILY Cyclosporine (Ophth) (Restasis) 0.05 % Emu 1 DROP OP BID, BTL Docusate Sodium (Docusate Sodium) 100 Mg Cap 100 MG PO BID Guaifenesin Ext Rel (Mucinex Ext Rel) 600 Mg Tab 600 MG PO BID PRN for CONGESTION, TAB Levothyroxine Sodium (Levothyroxine Sodium) 75 Mcg Tab 75 MCG PO DAILY Magnesium Hydroxide (Milk of Magnesia) 30 Ml Susp 30 ML PO DAILY PRN for Constipation Multiple Vitamins W/ Minerals (Ocuvite) 1 Tab Tab 1 TABLET PO DAILY Nitroglycerin (Nitrostat) 0.4 Mg Sub 0.4 MG UT PRN, BTL Ondansetron Hcl (Zofran) 4 Mg Tab 4 MG PO Q6 PRN for Nausea, TAB Oxygen (Oxygen) Gas 2 LITERS NA PRN Polyethylene Glycol 3350 (Miralax) 1 Pow Pow 1 TBS PO DAILY, #255 GM Potassium Chloride Microencaps (Potassium Chloride Er) 20 Meq Tab 20 MEQ PO DAILY Sennosides-Docusate Sodium (Sennalax-S) 1 Tab Tab 1 TAB PO DAILY PRN for Constipation Sertraline (Zoloft) 50 Mg Tab 50 MG PO DAILY, TAB Discontinued Medications: Loperamide Hcl (Imodium) 2 Mg Cap 4 MG PO UD, CAP 2 CAPS FOR 1ST LOOSE STOOL THEN ONE CAP EACH ADDITIONAL LOOSE BM NEEDED MAX 8/24HR Admission Information HPI (per Admitting provider): This is an 85 y/o female with PMHx of Hypothyroidism, HTN and other problems as outlined below who presents to the ED from [facility] c/o worsening cough x 4 weeks. Pt reports that she has had a cough for the past 4 weeks. Initially the cough was dry however it has been productive of thick, yellow sputum for the past 10 days or so. Sxs are assoc with subj fevers, fatigue, SO and loss of appetite. Pt is typically on 2L O2 HS however she has been requiring 3L continuous O2 at [facility]. Today, pt was unable to maintain O2 saturations on 3L therefore she was sent to the ED. She was not on abx at the assisted. Pt denies chills, diaphoresis, chest pain, palpitations, wheezing, abd pain, N/V , bowel or bladder issues, LE edema, calf pain, lightheadedness/dizziness. In the ED, pt was tachy and hypoxic to 88% on room air. She is afebrile with leukocytosis >18k. HgB 10.3. CKMB 4.7. CXR + large R perihilar consolidation. EKG no acute ischemic changes. Pt received Levaquin in the ED. Pt is currently saturating well on 3L O2. She will be admitted for further evaluation and treatment. Physical Exam (per Admitting): General Appearance: WD/WN, no apparent distress, + cachetic, + pertinent finding (Pt is sitting up in bed with niece at bedside ) Head: normocephalic, atraumatic Eyes: normal inspection ENT: hearing grossly normal Neck: supple Respiratory/Chest: chest non-tender, no respiratory distress, no accessory muscle use, + pertinent finding (course breath sounds; no wheezing noted) Cardiovascular: regular rate, rhythm, no edema, no murmur Abdomen/GI: normal bowel sounds, non tender, soft Back: normal inspection Extremities/Musculoskelatal: normal inspection, no calf tenderness, no pedal edema Neurologic/Psych: alert, normal mood/affect, oriented x 3 Skin: normal color, warm/dry Hospital Course HYPOXIC RESPIRATORY FAILURE Mostly due to Pneumonia -CXR showed large RUL pneumonia CT showed Extensive right lung consolidation, predominantly within the superior segment of the right lower lobe with patchy additional airspace opacities within lungs Continue Levaquin and Zosyn day#6 Blood cx showed no growth sputum cx growth normal bhavik Continue respiratory treatment with Duoneb cont supplement O2 Pulmonology on board Dr. Paulino on home oxygen at night saturation dropped to 86% on RA Pt desaturated on 2 step, will need continuous oxygen at 2L NC repeat cxr on 09/27 showed Persistent dense right midlung consolidation case discussed with Oc CALLAHAN pulmonary recommend to follow up at the pulmonary clinic in 2 weeks Clinically stable CHRONIC ANEMIA Hgb 8.6 today (baseline 9-11) Monitor with daily CBC THROMBOCYTOSIS -Plt 509 -monitor daily HYPOTHYROIDISM -cont levothyroxine DEPRESSION -cont Zoloft DVT PROPHYLAXIS -subq heparin CODE STATUS DNR DISPOSITION discharge today to [facility] Pt already has an appointment with dr. Norton on Friday Please Call [phone] to schedule an appointment with pulmonology in [address] Paulino or Oc Vasquez PA-C Total time spent on discharge = 35 minutes This includes examination of the patient, discharge planning, medication reconciliation, and communication with other providers. Discharge Instructions Discharge Instructions Admission Reason for Admission: Pneumonia Discharge Discharge Diagnosis / Problem: Right side Pneumonia, HYPOXIC RESPIRATORY FAILURE, Thrombocytosis Discharge Goals Goal(s): Decrease discomfort, Improve function, Improve disease control Activity Recommendations Activity Limitations: resume your previous activity (as tolerated) . Instructions / Follow-Up Instructions / Follow-Up Discharge to [facility] Follow up appointment with your Primary care provider Dr. Norton on FridaySep 30 at 10:10 am Please Call [phone] to schedule an appointment with pulmonology in [address] Paulino or Oc Vasquez PA-C Follow up with Continue PT/OT Fall precaution Continue oxygen with 2L NC Finish the course of Abx (levaquin) and steroid Current Hospital Diet Patient's current hospital diet: Regular Diet Discharge Diet Recommended Diet: Regular Diet Pending Studies Studies pending at discharge: no Medical Emergencies . Who to Call and When: Medical Emergencies: If at any time you feel your situation is an emergency, please call 911 immediately. . Non-Emergent Contact Non-Emergency issues call your: Primary Care Provider Call Non-Emergent contact if: you have a fever, you have any medication questions . . "Provider Documentation" section prepared by Jae Gonzalez. VTE Core Measure Inpt VTE Proph given/why not?: Unfractionated heparin SQ [facility] Les Norton M.D.
== END 2016-09-28 13:54 | disposition home or self-care (01) | DRG 871 ==
LOC: ENRESERVTM → ENRESERVDT → EDBD 11:58 → C.EDB 11:59 → C.2T 15:21 → C.MS4W 09-26 17:40
PROVIDERS: ADMIT Hospitalist; ATTEND Internal Medicine
DX: A41.9 Sepsis, unspecified organism (principal); J96.90 Respiratory failure, unspecified, unspecified whether with hypoxia or hypercapnia; J69.0 Pneumonitis due to inhalation of food and vomit; J85.0 Gangrene and necrosis of lung; I10 Essential (primary) hypertension; E03.9 Hypothyroidism, unspecified; D64.9 Anemia, unspecified; D47.3 Essential (hemorrhagic) thrombocythemia; F32.9 Major depressive disorder, single episode, unspecified; M32.9 Systemic lupus erythematosus, unspecified; F41.9 Anxiety disorder, unspecified; M48.06 Spinal stenosis, lumbar region; M19.90 Unspecified osteoarthritis, unspecified site; H35.30 Unspecified macular degeneration; Z87.891 Personal history of nicotine dependence; J44.9 Chronic obstructive pulmonary disease, unspecified; R13.10 Dysphagia, unspecified; D72.829 Elevated white blood cell count, unspecified; Z66 Do not resuscitate; Z86.73 Personal history of transient ischemic attack (TIA), and cerebral infarction without residual deficits

== ENCOUNTER → 2016-11-08 | Outpatient (CLI) | payer OTHER ==
[~2016-11-08] MED LIST changes: +ACT/35 PO; -ALBU1AER9 INH; +CALC600T9 PO; +CLC100 PO; +CYCL0.052 OP; +GUAI1TAB55 PO; +IBUP-103 PO; +IMD/2 PO; +IPRASOL4 INH; +LEVO1TAB34 PO; -MAGNSUS5 PO; +MOMLX PO; +MULT-188 PO; +MULTTAB66 PO; +ONDA4TAB46 PO; +OXGN; +POLY1SOL6 OPB; +PRD20 PO; -RSTOPS OP; +SENN1TAB86 PO; -SENN8.6T15 PO; -SERT25TA PO; +SERT50TA PO; +WHITOIN2 OPB
--- NOTE | 2016-11-08 09:14 | DIAGNOSTIC IMAGING REPORT ---
CHEST 2 VIEWS ROUTINE CLINICAL HISTORY: PNEUMONIA dyspnea COMPARISON STUDY: 09/27/2016 FINDINGS: Considerable improvement in right perihilar parenchymal infiltrative process. Moderate residual. Baseline emphysematous and chronic fibrotic change. IMPRESSION: 1. Considerable improvement in the right perihilar and midlung infiltrate. 2. Mild residual. 3. Moderate interstitial and emphysematous change considered baseline findings. Electronically signed by: Arron Ty M.D. 11/08/2016 9:12 AM Dictated Date/Time: 11/08/2016 9:10 AM
== END | disposition home or self-care (01) ==
LOC: C.RADBBURG 00:37
PROVIDERS: ATTEND Physician Assistant
DX: J18.9 Pneumonia, unspecified organism (principal)

== ENCOUNTER → 2017-04-09 | Outpatient (CLI) | payer OTHER ==
[~2017-04-09] MED LIST changes: -SENN1TAB86 PO; +SENN8.6T15 PO
--- NOTE | 2017-04-17 12:38 | CODING QUERY MEDICAL NECESSITY ---
CQSUPPORTING DIAGNOSIS NEEDED A supporting diagnosis is required for the test/procedure performed on this patient in order for us to be reimbursed by the patient's insurance. Please provide a supporting diagnosis for the following test/procedure listed below next to the test name along with your signature. *If there is no additional diagnosis for this patient that would support the following test/procedure please document that below next to the test/procedure. Test(s)/Procedure(s) that require a supporting diagnosis: DOS 04/09/17 VITAMIN B12 TEST FOLIC ACID TEST Provider Signature: Date: Thank you Jenn Wilson Health Information Management Once completed, please kindly fax back to [phone] For questions please call [phone]
== END | disposition home or self-care (01) ==
LOC: C.LABSPEC 07:43
PROVIDERS: ATTEND Family Medicine
DX: D64.9 Anemia, unspecified (principal)

== ENCOUNTER 2017-04-16 06:06 | Emergency (ER) | payer OTHER ==
[~2017-04-16] VITALS: Ht 147.3 cm; Wt 41.0 kg
[~2017-04-16 06:06] MED LIST changes: -ACT/35 PO; -CALC600T9 PO; -IBUP-103 PO; -IMD/2 PO; -MULTTAB66 PO; -POLY1SOL6 OPB; -WHITOIN2 OPB
[2017-04-16 06:16] VITALS: TEMP 36.4; Ht 147.3 cm; Wt 41.0 kg
[2017-04-16 06:25] VITALS: O2SAT 98
[2017-04-16] MEDS ORDERED: IPRASOL4 INH (06:27)
[2017-04-16] MEDS ORDERED: ACT/35 PO (06:27)
[2017-04-16] MEDS ORDERED: IMD/2 PO (06:27)
[2017-04-16] MEDS ORDERED: WHITOIN2 OPB (06:27)
[2017-04-16] MEDS ORDERED: IBUP-103 PO (06:27)
[2017-04-16] MEDS ORDERED: POLY1SOL6 OPB (06:27)
--- NOTE | 2017-04-16 07:44 | DIAGNOSTIC IMAGING REPORT ---
RIGHT SHOULDER MIN 2 VIEWS ROUTINE CLINICAL HISTORY: injury Right trauma COMPARISON: None. DISCUSSION: Oblique fracture distal clavicle. Moderate degenerative change glenohumeral joint. Calcific supraspinatus tendinitis. No evidence of dislocation. IMPRESSION: Oblique fracture distal clavicle. Moderate degenerative change right shoulder. The above report was generated using voice recognition software. It may contain grammatical, syntax or spelling errors. Electronically signed by: Arron Ty M.D. 04/16/2017 7:43 AM Dictated Date/Time: 04/16/2017 7:40 AM
--- NOTE | 2017-04-16 08:05 | EMERGENCY ROOM VISIT NOTE ---
History Report prepared by Anita: Trini Hernandez Under the Supervision of: Dr. Tigre Fernandez D.O. First contact with patient: 06:49 Chief Complaint: FALL Stated Complaint: FALL/SHOULDER DEFORMITY History of Present Illness The patient is an 86 year old female who presents to the Emergency Room with complaints of a sudden fall that occurred prior to arrival. The patient reports that she fell injuring her right shoulder. She reports to right shoulder pain, but additionally reports an aching pain all over. The patient denies any head trauma. Source of History: patient Onset: prior to arrival Position: other (global) Quality: other (fall) Timing: other (sudden) Note: Associated Symptoms: right shoulder pain Review of Systems See HPI for pertinent positives & negatives. A total of 10 systems reviewed and were otherwise negative. Past Medical & Surgical Medical Problems: (1) Anxiety State Nos (2) C7 cervical fracture (3) Chronic obstructive lung disease (4) Chronic respiratory failure (5) Diverticulosis Colon (W/O Ment Of Hemorrhage) (6) Frequent falls (7) FX UPPER END TIBIA-CLOSE (8) H/o lacunar infarct (9) History of possible drop attacks (10) History of systemic lupus erythematosus (SLE) (11) History of vertigo (12) Hypertension Nos (13) Hypothyroidism Nos (14) Lumbar spinal stenosis (15) Macular degeneration (16) Osteoarthritis (17) Osteoporosis Nos (18) Psoriasis (19) Pulmonary hypertension (20) Vertigo Surgical Problems: (1) History of dental surgery (2) S/P cataract surgery Family History Diabetes mellitus Gallbladder disease Heart disease Social History Smoking Status: Former Smoker Alcohol Use: none Drug Use: none Marital Status: single Housing Status: lives alone Occupation Status: retired Current/Historical Medications Scheduled Calcium Citrate-Vitamin D (Citracal Petites/Vitamin), 1 TAB PO DAILY Cyclosporine (Ophth) (Restasis), 1 DROP OP BID Docusate Sodium (Docusate Sodium), 100 MG PO BID Home O2 Therapy (Oxygen), 3 LITERS NA CONTINOUS Levothyroxine Sodium (Levothyroxine Sodium), 75 MCG PO DAILY Multiple Vitamins W/ Minerals (Ocuvite), 1 TABLET PO DAILY Polyethylene Glycol 3350 (Miralax), 1 TBS PO DAILY Polyethylene Glycol-Propylene (Systane Ultra), 1 DROPS OPB TID Potassium Chloride Microencaps (Potassium Chloride Er), 20 MEQ PO DAILY Risedronate Sod (Actonel), 35 MG PO WK Sertraline (Zoloft), 50 MG PO DAILY White Petrolatum-Mineral Oil (Systane Nighttime), 0.25 INCH OPB HS Scheduled PRN Acetaminophen (Tylenol), 650 MG PO Q6 PRN for Pain Guaifenesin Ext Rel (Mucinex Ext Rel), 600 MG PO BID PRN for CONGESTION Ibuprofen Tab (Advil), 200 MG PO BID PRN for Pain Ipratropium-Albuterol (Duoneb), 1 TREATMENT INH QID PRN for SOB/Wheezing Loperamide Hcl (Imodium), 2 MG PO DIRECTED PRN for Diarrhea Magnesium Hydroxide (Milk of Magnesia), 30 ML PO DAILY PRN for Constipation Nitroglycerin (Nitrostat), 0.4 MG UT PRN PRN for Chest Pain Ondansetron Hcl (Zofran), 4 MG PO Q6 PRN for Nausea Sennosides-Docusate Sodium (Sennalax-S), 1 TAB PO DAILY PRN for Constipation Allergies Coded Allergies: Macrolides and Ketolides (Verified Allergy, Mild, "mycins" = rash, 04/16/17) Physical Exam Vital Signs Date Time Temp Pulse Resp B/P (MAP) Pulse Ox O2 Delivery O2 Flow Rate FiO2 04/16/17 06:43 98 04/16/17 06:36 62 26 99 Room Air 04/16/17 06:31 131/67 04/16/17 06:25 98 Nasal Cannula 3.0 04/16/17 06:23 74 04/16/17 06:23 142/71 04/16/17 06:17 150/71 04/16/17 06:16 36.4 64 21 150/71 99 Nasal Cannula 3.0 Physical Exam CONSTITUTIONAL/VITAL SIGNS: Reviewed / noted above. GENERAL: Non-toxic in appearance. INTEGUMENTARY: Warm, dry, and [place]. HEAD: Normocephalic. EYES: without scleral icterus or trauma. ENT/OROPHARYNX: clear and moist. LYMPHADENOPATHY/NECK: Is supple without lymphadenopathy or meningismus. RESPIRATORY: Lungs clear and equal. CARDIOVASCULAR: Regular rate and rhythm. GI/ABDOMEN: Soft and nontender. No organomegaly or pulsatile mass. No rebound or guarding. Normal bowel sounds. EXTREMITIES: Right shoulder reveals some deformity compared to the left, limited range of motion due to pain, neurovascularly intact distally. BACK: No CVA tenderness. NEUROLOGICAL: Intact without focal deficits. PSYCHIATRIC: normal affect. MUSCULOSKELETAL: Normally developed with good muscle tone. Medical Decision & Procedures ER Provider Diagnostic Interpretation: X ray results and stated below per my interpretation and radiology interpretation. RIGHT SHOULDER MIN 2 VIEWS ROUTINE CLINICAL HISTORY: injury Right trauma COMPARISON: None. DISCUSSION: Oblique fracture distal clavicle. Moderate degenerative change glenohumeral joint. Calcific supraspinatus tendinitis. No evidence of dislocation. IMPRESSION: Oblique fracture distal clavicle. Moderate degenerative change right shoulder. The above report was generated using voice recognition software. It may contain grammatical, syntax or spelling errors. Electronically signed by: Arron Ty M.D. 04/16/2017 7:43 AM Dictated Date/Time: 04/16/2017 7:40 AM ED Course 0653: Previous medical records were reviewed. The patient was evaluated in room A2. A complete history and physical examination was performed. 0800: I reevaluated the patient and she is resting comfortably. I discussed the exam findings with her and I discussed the treatment plan. She verbalized complete understanding and agreement. She is ready to go home. Medical Decision Differential diagnosis: Etiologies such as fracture, dislocation, neurovascular compromise, compartment syndrome, soft tissue injury, as well as others were entertained. This is a 86-year-old female who presents to the ED with a chief complaint of right shoulder pain after a fall. The patient was getting onto the toilet when she slipped and lost her balance striking the right shoulder on the wall/ ground. She denies striking her head. She denies any loss of consciousness or other injuries. She denies any back, chest, abdomen or other extremity pain. Her exam is revealing some deformity to the right shoulder area. X-ray shows a right distal clavicle fracture. She was placed in a right arm sling. The patient will be referred to orthopedics. There is no other injuries on exam that were concerning or requiring x-rays at the time of her evaluation. She is felt to be stable for discharge. Medication Reconcilliation Current Medication List: was personally reviewed by me Blood Pressure Screening Patient's blood pressure: Elevated blood pressure Blood pressure disposition: Elevated BP felt to be situational, Did not require urgent referral Impression Primary Impression: Right clavicle fracture Scribe Attestation The scribe's documentation has been prepared under my direction and personally reviewed by me in its entirety. I confirm that the note above accurately reflects all work, treatment, procedures, and medical decision making performed by me. Departure Information Dispostion Home / Self-Care Referrals [facility] (PCP) Ramses Elias M.D. Patient Instructions Clavicle Fx, [facility] Additional Instructions Keep sling in place for comfort. Follow-up with orthopedics for recheck. Call their office today. Return for any concerns or other symptoms.
[2017-04-16 09:40] VITALS: BP 128/74; PULSE 74; O2SAT 100
== END 2017-04-16 09:40 | disposition home or self-care (01) ==
LOC: EDBD 06:06 → C.EDA 06:07
DX: S42.001A Fracture of unspecified part of right clavicle, initial encounter for closed fracture (principal); W01.0XXA Fall on same level from slipping, tripping and stumbling without subsequent striking against object, initial encounter; Y92.002 Bathroom of unspecified non-institutional (private) residence as the place of occurrence of the external cause; F41.9 Anxiety disorder, unspecified; J44.9 Chronic obstructive pulmonary disease, unspecified; J96.10 Chronic respiratory failure, unspecified whether with hypoxia or hypercapnia; K57.30 Diverticulosis of large intestine without perforation or abscess without bleeding; I10 Essential (primary) hypertension; E03.9 Hypothyroidism, unspecified; M48.06 Spinal stenosis, lumbar region; M19.90 Unspecified osteoarthritis, unspecified site; M81.0 Age-related osteoporosis without current pathological fracture; Z83.3 Family history of diabetes mellitus; Z83.79 Family history of other diseases of the digestive system; Z82.49 Family history of ischemic heart disease and other diseases of the circulatory system; Z87.891 Personal history of nicotine dependence; Z79.899 Other long term (current) drug therapy

== ENCOUNTER 2017-05-07 08:22 | Emergency (ER) | payer OTHER ==
[~2017-05-07] VITALS: Ht 147.3 cm; Wt 36.5 kg
[~2017-05-07 08:22] MED LIST changes: +ACT/35 PO; +IBUP-103 PO; +IMD/2 PO; -LEVO1TAB34 PO; +POLY1SOL6 OPB; -PRD20 PO; +WHITOIN2 OPB
[2017-05-07 08:27] VITALS: TEMP 36.8; Ht 147.3 cm; Wt 36.5 kg
--- NOTE | 2017-05-07 09:34 | DIAGNOSTIC IMAGING REPORT ---
R PELVIS/UNILATERAL HIP 2-3VIEWS HISTORY: 86 years-old Female rt hip pain heard a pop yesterday acute right hip pain without reported trauma. Initial exam. COMPARISON: Pelvis radiograph 02/18/2016 TECHNIQUE: AP view of the pelvis with AP and frog-leg views of the right hip. FINDINGS: The bones are osteopenic. Degenerative changes involve the lower lumbar spine. Calcifications of the left upper abdomen laterally suggest chondral calcifications adjacent to the ribs. No acute pelvic fracture identified. Moderate degenerative changes involve the bilateral femoral acetabular joints. No acute fracture or dislocation of the right hip. Imaged proximal right femur appears intact. IMPRESSION: 1. No acute fracture or dislocation identified involving the pelvis or right hip. 2. Moderate degenerative changes of the bilateral femoral acetabular joints. The above report was generated using voice recognition software. It may contain grammatical, syntax or spelling errors. Electronically signed by: Collin Polo M.D. 05/07/2017 9:33 AM Dictated Date/Time: 05/07/2017 9:29 AM
[2017-05-07] MEDS ORDERED: MULTTAB66 PO (09:39)
[2017-05-07] MEDS ORDERED: CALC600T9 PO (09:39)
--- NOTE | 2017-05-07 10:30 | EMERGENCY ROOM VISIT NOTE ---
History Report prepared by Anita: Con Olivares Under the Supervision of: Dr. Tigre Fernandez D.O. First contact with patient: 08:35 Chief Complaint: LEG PAIN,LEG INJURY Stated Complaint: NO WEIGHT BEARING RIGHT LEG History of Present Illness The patient is a 86 year old female who presents to the Emergency Room with complaints of constant right leg pain starting yesterday. The patient states that she was standing up, and she felt something pop in her right hip. She states that the pain is worsened while sitting on a toilet. The patient states that a week ago she fell backwards on her hip, and she was having right hip pain at that time. She had x-rays done, and there were no fractures noticed, and she has been feeling better since then until this episode. Per the patient s aid, the patient has a history of vertigo, though this is not what caused her to fall. Source of History: patient, other (patient's aid) Onset: yesterday Position: leg (right) Timing: constant Modifying Factors (Worsening): other Review of Systems See HPI for pertinent positives & negatives. A total of 10 systems reviewed and were otherwise negative. Past Medical & Surgical Medical Problems: (1) Anxiety State Nos (2) C7 cervical fracture (3) Chronic obstructive lung disease (4) Chronic respiratory failure (5) Diverticulosis Colon (W/O Ment Of Hemorrhage) (6) Frequent falls (7) FX UPPER END TIBIA-CLOSE (8) H/o lacunar infarct (9) History of possible drop attacks (10) History of systemic lupus erythematosus (SLE) (11) History of vertigo (12) Hypertension Nos (13) Hypothyroidism Nos (14) Lumbar spinal stenosis (15) Macular degeneration (16) Osteoarthritis (17) Osteoporosis Nos (18) Psoriasis (19) Pulmonary hypertension (20) Vertigo Surgical Problems: (1) History of dental surgery (2) S/P cataract surgery Family History Diabetes mellitus Gallbladder disease Heart disease Social History Smoking Status: Former Smoker Alcohol Use: none Drug Use: none Marital Status: single Housing Status: lives alone Occupation Status: retired Current/Historical Medications Scheduled Calcium Carbonate-Vitamin D (Calcium + D), 1 TAB PO DAILY Cyclosporine (Ophth) (Restasis), 1 DROP OP BID Docusate Sodium (Docusate Sodium), 100 MG PO BID Home O2 Therapy (Oxygen), 3 LITERS NA CONTINOUS Levothyroxine Sodium (Levothyroxine Sodium), 75 MCG PO DAILY Multiple Vitamins W/ Minerals (I-Douglas), 1 TAB PO DAILY Polyethylene Glycol 3350 (Miralax), 1 TBS PO DAILY Polyethylene Glycol-Propylene (Systane Ultra), 1 DROPS OPB TID Potassium Chloride Microencaps (Potassium Chloride Er), 20 MEQ PO DAILY Risedronate Sod (Actonel), 35 MG PO WK Sertraline (Zoloft), 50 MG PO DAILY White Petrolatum-Mineral Oil (Systane Nighttime), 0.25 INCH OPB HS Scheduled PRN Acetaminophen (Tylenol), 650 MG PO Q6 PRN for Pain Guaifenesin Ext Rel (Mucinex Ext Rel), 600 MG PO BID PRN for CONGESTION Ibuprofen Tab (Advil), 200 MG PO BID PRN for Pain Ipratropium-Albuterol (Duoneb), 1 TREATMENT INH QID PRN for SOB/Wheezing Loperamide Hcl (Imodium), 2 MG PO DIRECTED PRN for Diarrhea Magnesium Hydroxide (Milk of Magnesia), 30 ML PO DAILY PRN for Constipation Nitroglycerin (Nitrostat), 0.4 MG UT PRN PRN for Chest Pain Ondansetron Hcl (Zofran), 4 MG PO Q6 PRN for Nausea Sennosides-Docusate Sodium (Sennalax-S), 1 TAB PO DAILY PRN for Constipation Allergies Coded Allergies: Macrolides and Ketolides (Verified Allergy, Mild, "mycins" = rash, 04/16/17) Physical Exam Vital Signs Date Time Temp Pulse Resp B/P (MAP) Pulse Ox O2 Delivery O2 Flow Rate FiO2 05/07/17 09:43 74 14 118/68 98 Nasal Cannula 3.0 05/07/17 08:27 36.8 82 16 112/62 90 Nasal Cannula 3.0 Physical Exam CONSTITUTIONAL/VITAL SIGNS: Reviewed / noted above. GENERAL: Non-toxic in appearance. INTEGUMENTARY: Warm, dry, and [place]. HEAD: Normocephalic. EYES: without scleral icterus or trauma. ENT/OROPHARYNX: clear and moist. LYMPHADENOPATHY/NECK: Is supple without lymphadenopathy or meningismus. RESPIRATORY: Lungs clear and equal. CARDIOVASCULAR: Regular rate and rhythm. GI/ABDOMEN: Soft and nontender. No organomegaly or pulsatile mass. No rebound or guarding. Normal bowel sounds. EXTREMITIES: Discomfort in the right hip area wth movement and palpation. No obvious visible or palpable abnormalities. Distally neurovascularly intact without shortening or abnormalities. Ful range of motion of the right hip with minimal discomfort. Warm and well perfused. BACK: No CVA tenderness. NEUROLOGICAL: Intact without focal deficits. PSYCHIATRIC: normal affect. MUSCULOSKELETAL: Normally developed with good muscle tone. Medical Decision & Procedures ER Provider Diagnostic Interpretation: Radiology results as stated below per my review and radiologist interpretation: R PELVIS/UNILATERAL HIP 2-3VIEWS HISTORY: 86 years-old Female rt hip pain heard a pop yesterday acute right hip pain without reported trauma. Initial exam. COMPARISON: Pelvis radiograph 02/18/2016 TECHNIQUE: AP view of the pelvis with AP and frog-leg views of the right hip. FINDINGS: The bones are osteopenic. Degenerative changes involve the lower lumbar spine. Calcifications of the left upper abdomen laterally suggest chondral calcifications adjacent to the ribs. No acute pelvic fracture identified. Moderate degenerative changes involve the bilateral femoral acetabular joints. No acute fracture or dislocation of the right hip. Imaged proximal right femur appears intact. IMPRESSION: 1. No acute fracture or dislocation identified involving the pelvis or right hip. 2. Moderate degenerative changes of the bilateral femoral acetabular joints. The above report was generated using voice recognition software. It may contain grammatical, syntax or spelling errors. Electronically signed by: Collin Polo M.D. 05/07/2017 9:33 AM Dictated Date/Time: 05/07/2017 9:29 AM ED Course 0845: Previous medical records were reviewed. The patient was evaluated in room A11. A complete history and physical examination was performed. 1021: On reevaluation, the patient is doing well. I discussed the results and findings with the patient. She verbalized agreement of the treatment plan. She was discharged home. Medical Decision Differential diagnosis: Etiologies such as fracture, dislocation, neurovascular compromise, compartment syndrome, soft tissue injury, as well as others were entertained. This is an 86 year old female who presents with a complaint of right hip pain. She states she heard a pop yesterday when she was getting up from a chair and began having pain in the right hip since that time. The patient has pain with certain movements and with weightbearing. She resides at a local nursing facility. The exam is noted above. No obvious abnormalities other than some discomfort with movement of the right hip. X-rays did not show fracture or dislocation. The patient was told the results. The [facility] feels comfortable taking her back. She is felt to be stable for discharge. Medication Reconcilliation Current Medication List: was personally reviewed by me Blood Pressure Screening Patient's blood pressure: Elevated blood pressure Impression Primary Impression: Right hip pain Scribe Attestation The scribe's documentation has been prepared under my direction and personally reviewed by me in its entirety. I confirm that the note above accurately reflects all work, treatment, procedures, and medical decision making performed by me. Departure Information Dispostion Home / Self-Care [facility] Forms HOME CARE DOCUMENTATION FORM, IMPORTANT VISIT INFORMATION Patient Instructions [facility] Additional Instructions Follow-up with your doctor for further care and evaluation in 1-2 days. Return to the emergency department for worsening or new symptoms or any concerns. You have been examined and treated today on an emergency basis only. This is not a substitute for, or an effort to provide, complete comprehensive medical care. It is impossible to recognize and treat all injuries or illnesses in a single emergency department visit. It is therefore important that you follow up closely with your doctor. Call as soon as possible for an appointment.
[2017-05-07 10:40] VITALS: BP 127/68; PULSE 79; O2SAT 98
== END 2017-05-07 10:42 | disposition home or self-care (01) ==
LOC: C.EDB 08:24 → C.EDA 10:42
DX: M25.551 Pain in right hip (principal); I10 Essential (primary) hypertension; E03.9 Hypothyroidism, unspecified; J44.9 Chronic obstructive pulmonary disease, unspecified; M81.0 Age-related osteoporosis without current pathological fracture; K57.30 Diverticulosis of large intestine without perforation or abscess without bleeding; M32.9 Systemic lupus erythematosus, unspecified; F41.9 Anxiety disorder, unspecified; M19.90 Unspecified osteoarthritis, unspecified site; Z87.81 Personal history of (healed) traumatic fracture; Z91.81 History of falling; Z98.49 Cataract extraction status, unspecified eye; Z98.890 Other specified postprocedural states; Z87.891 Personal history of nicotine dependence; Z79.899 Other long term (current) drug therapy; Z88.8 Allergy status to other drugs, medicaments and biological substances; Z83.3 Family history of diabetes mellitus; Z83.79 Family history of other diseases of the digestive system; Z82.49 Family history of ischemic heart disease and other diseases of the circulatory system

== ENCOUNTER → 2017-06-03 | Outpatient (CLI) | payer OTHER ==
[~2017-06-03] MED LIST changes: -CALC-335 PO; +CALC600T9 PO; -MULT-188 PO; +MULTTAB66 PO
--- NOTE | 2017-06-03 11:25 | DIAGNOSTIC IMAGING REPORT ---
CHEST 2 VIEWS ROUTINE CLINICAL HISTORY: R05 [id number] dyspnea COMPARISON STUDY: 11/08/2016 FINDINGS: Diffuse emphysematous change bilaterally. No acute infiltrate. Diaphragms smooth but somewhat flattened. Calcific angles are slightly blunted. No evidence for cardiac enlargement. IMPRESSION: Chronic emphysematous and fibrotic change. No acute process. The above report was generated using voice recognition software. It may contain grammatical, syntax or spelling errors. Electronically signed by: Arron Ty M.D. 06/03/2017 11:24 AM Dictated Date/Time: 06/03/2017 11:19 AM
== END | disposition home or self-care (01) ==
LOC: C.RAD1850 11:02
PROVIDERS: ATTEND Physician Assistant
DX: R05 Cough (principal); J34.9 Unspecified disorder of nose and nasal sinuses

== ENCOUNTER → 2018-04-06 | Outpatient (CLI) | payer OTHER ==
[~2018-04-06] MED LIST changes: +IPRA-64 INH; -IPRASOL4 INH; +SENN1TAB86 PO; -SENN8.6T15 PO
--- NOTE | 2018-04-06 11:12 | DIAGNOSTIC IMAGING REPORT ---
CHEST 2 VIEWS ROUTINE CLINICAL HISTORY: R05 [id number] dyspnea COMPARISON STUDY: 06/03/2017 FINDINGS: Stable emphysematous and chronic fibrotic change. No acute infiltrate. Degenerative changes thoracic spine. Mild thoracic kyphosis. IMPRESSION: Emphysematous and chronic fibrotic change. No acute process. The above report was generated using voice recognition software. It may contain grammatical, syntax or spelling errors. Electronically signed by: Arron Ty M.D. 04/06/2018 11:10 AM Dictated Date/Time: 04/06/2018 11:07 AM
== END | disposition home or self-care (01) ==
LOC: C.RAD1850 10:48
PROVIDERS: ATTEND Physician Assistant
DX: J43.9 Emphysema, unspecified (principal); R05 Cough